=== PATIENT | female | born 1950 | race Caucasian/White ===

== ENCOUNTER 2020-11-10 09:47 | Inpatient (IN) | payer OTHER ==
--- OUTSIDE RECORDS SUMMARY | 2020-11-10 09:50 | XMS REPORT | Continuity of Care Document ---
:[address] [facility] t Address [address] [place] [address] [place] [id number] Care Team Providers Name Role Phone Domingo Attending Clinician [phone] Problems This patient has no known problems. Allergies, Adverse Reactions, Alerts This patient has no known allergies or adverse reactions. Medications This patient has no known medications. Procedures This patient has no known procedures. Encounters Start End Encounter Admission Attending Care Care Encounter Source Date/Time Date/Time Type Type Clinicians Facility Department ID 2020-11-08 2020-11-08 Outpatient [facility] [id number] 00:00:00 00:00:00 Marleni [id number] 2020-11-06 2020-11-06 Outpatient [facility] [id number] 00:00:00 00:00:00 Marleni [id number] 2020-11-02 2020-11-02 Out[facility] [id number] 00:00:00 00:00:00 Marleni [id number] Results This patient has no known results.
[2020-11-10] MEDS ORDERED: NA CHLORIDE 0.9% 1,000 ML ONE (11:33)
[2020-11-10] MEDS ORDERED: Levofloxacin500mg IV 500 MG/100 ML BAG IV ONE (11:33)
[2020-11-10] MEDS ORDERED: FOLIC ACID 5 MG/ML VIAL ONE (11:39)
--- NOTE | 2020-11-10 12:05 | RAD REPORT ---
EXAM DESCRIPTION: CT - Head Brain Wo Cont - 11/10/2020 11:51 am CLINICAL HISTORY: Dizziness COMPARISON: None TECHNIQUE: Computed axial tomography of the head was obtained. IV contrast was not requested. All CT scans are performed using dose optimization technique as appropriate and may include automated exposure control or mA/KV adjustment according to patient size. FINDINGS: An intracranial bleed is not seen . The ventricles are normal in caliber. No extra-axial fluid collection is noted. Fluid is present within the maxillary, ethmoid, frontal and sphenoid sinuses IMPRESSION: No acute intracranial abnormality is seen. Acute pansinusitis
--- NOTE | 2020-11-10 12:10 | RAD REPORT ---
EXAM DESCRIPTION: CT - Soft Tissue Neck W/Contr - 11/10/2020 11:51 am CLINICAL HISTORY: Neck pain and swelling COMPARISON: None. TECHNIQUE: Computed axial tomography of the neck was obtained. 50 cc Isovue 300 was administered in travenously. Coronal and sagittal reconstruction was performed. All CT scans are performed using dose optimization technique as appropriate and may include automated exposure control or mA/KV adjustment according to patient size. FINDINGS: Mild prominence of the left base of tongue. Remainder the pharynx, larynx and subglottic t rachea are unremarkable. Epiglottis is normal. The parotid, submandibular and thyroid glands appear unremarkable. No lymphadenopathy is seen IMPRESSION: Mild prominence of the left base of tongue. This has more of the appearance of being maximilian matous rather than an underlying mass being present. Followup is recommended.
[2020-11-10 12:13] LABS: Absolute Lymphocytes (CBC) 1.4 K/uL (0.7-4.9); Basophils % 0.1 % (0-1.3); Hematocrit 31.1 % (36.0-45.0); Lymphocytes % 7.6 % (15.3-44.8); MPV 6.5 fL (7.6-11.3); RBC Red Blood Cell Count 3.81 M/uL (3.86-4.86)
[2020-11-10 12:18] LABS: Protime INR 1.03
--- NOTE | 2020-11-10 12:28 | RAD REPORT ---
EXAM DESCRIPTION: MRI - Brain Wo Cont - 11/10/2020 12:07 pm CLINICAL HISTORY: Dizziness COMPARISON: Head CT November 10, 2020 TECHNIQUE: Axial, sagittal, and coronal magnetic images of the brain were obtained. Contrast was not requested FINDINGS: A few small areas increased signal are present within periventricular, deep and subcortica l white matter probably ischemic changes secondary to mild small vessel disease. Diffusion-weighted/ADC mapping does not reveal evidence of acute infarction. The ventricles are normal caliber. An extra-axial fluid collection is not present Fluid is present within the maxillary, ethmoid, sphenoid and frontal sinuses IMPRESSION: No acute intracranial abnormality seen. Acute pansinusitis
[2020-11-10 12:39] LABS: ALT/SGPT 45 U/L (12-78); AST/SGOT 34 U/L (15-37); Albumin 3.1 g/dL (3.4-5.0); Alkaline Phosphatase 146 U/L (45-117); BUN Blood Urea Nitrogen 10 mg/dL (7-18); Bicarbonate 30 mmol/L (21-32); Bilirubin Direct 0.3 mg/dL (0-0.2); Bilirubin Total 0.8 mg/dL (0.2-1.0); Glucose Level 117 mg/dL (74-106); Magnesium 2.1 mg/dL (1.8-2.4); NT PRO-BNP 121 pg/mL (<125); Potassium 2.7 mmol/L (3.5-5.1); Protein, Total 7.3 g/dL (6.4-8.2); Troponin (Emerg Dept Use Only) < 0.02 ng/mL (0.0-0.045)
--- NOTE | 2020-11-10 12:40 | RAD REPORT ---
EXAM DESCRIPTION: RAD - Chest Single View - 11/10/2020 12:33 pm CLINICAL HISTORY: COUGH Chest pain. COMPARISON: <Comparisons> FINDINGS: Portable technique limits examination quality. The lungs are grossly clear. The heart is normal in size. No displaced fractures. IMPRESSION: No acute intrathoracic process suspected.
[2020-11-10 12:53] LABS: Sodium Level 112 mmol/L (136-145)
--- NOTE | 2020-11-10 13:01 | ER ---
Nurse's Notes [facility] Name: Leilani Moe Age: 70 yrs Sex: Female : 1950 Arrival Date: 11/10/2020 Time: 09:53 Bed 20 Private MD: Diagnosis: Weakness;Repeated falls;Elevated white blood cell count;Acute sinusitis-Pansinusitis;Hypokalemia;Hypo-osmolality and hyponatremia Presentation: 11/10 09:57 Chief complaint: Patient states: sinus pressure x 1 week. Pt reports she was seen for ss allergies and given an antibiotic and pain medication for her symptoms, but she ended up being allergic to both of them. Pt reports she had unilateral swelling of her tongue that began Friday, but has gotten much better. Pt was tested for Flu and COVID 2 days ago and both were negative. Coronavirus screen: Client denies travel out of the [place] in the last 14 days. Client presents with at least one sign or symptom that may indicate coronavirus-19. Standard/surgical mask placed on the client. Ebola Screen: Patient denies exposure to infectious person. Patient denies travel to an Ebola-affected area in the 21 days before illness onset. Initial Sepsis Screen: Does the patient meet any 2 criteria? No. Patient's initial sepsis screen is negative. Does the patient have a suspected source of infection? No. Patient's initial sepsis screen is negative. Risk Assessment: Do you want to hurt yourself or someone else? Patient reports no desire to harm self or others. Onset of symptoms was November 01, 2020. 09:57 Method Of Arrival: Ambulatory 09:57 Acuity: ANTONIO 3 ss Historical: - Allergies: 10:04 Codeine; ss 10:04 Morphine; ss - Home Meds: 11:04 Metformin Oral [Active]; vg1 - PMHx: 10:04 Hypertension; ss 11:04 Diabetes - IDDM; vg1 - PSHx: 10:04 Cholecystectomy; bilateral knee replacement; back surgery; ss - Immunization history:: Adult Immunizations up to date. - Social history:: Smoking status: Patient denies any tobacco usage or history of. - Family history:: not pertinent. Screenin:04 Abuse screen: Denies threats or abuse. Nutritional screening: No deficits noted. vg1 Tuberculosis screening: No symptoms or risk factors identified. Fall Risk Fall in past 12 months (25 points). No secondary diagnosis (0 pts). IV access (20 points). Ambulatory Aid- None/Bed Rest/Nurse Assist (0 pts). Gait- Normal/Bed Rest/Wheelchair (0 pts) Mental Status- Oriented to own ability (0 pts). Total Mckinney Fall Scale indicates High Risk Score (45 or more points). Fall prevention measures have been instituted. Side Rails Up X 2 Placed Close to Nursing Station 1:1 Attendant Assigned Family Present and informed to notify staff if the need to leave the bedside. Assessment: 10:50 General: Appears in no apparent distress. comfortable, Behavior is calm, cooperative. vg1 Pain: Denies pain. Pain currently is 0 out of 10 on a pain scale. Neuro: Level of Consciousness is awake, alert, obeys commands, Oriented to person, place, time, situation. Neuro: Reports Sinus pressure. Cardiovascular: Patient's skin is warm and dry. Respiratory: Airway is patent Respiratory effort is even, unlabored. GI: No signs and/or symptoms were reported involving the gastrointestinal system. : No signs and/or symptoms were reported regarding the genitourinary system. EENT: Oral mucosa is moist. white substance noted on tounge.. Reports difficulty swallowing Left ear pressure. Derm: Skin is intact, Skin is pink, warm \T\ dry. Musculoskeletal: Circulation, motion, and sensation intact. 12:53 Reassessment: Patient appears in no apparent distress at this time. No changes from vg1 previously documented assessment. Patient and/or family updated on plan of care and expected duration. Pain level reassessed. Patient is alert, oriented x 3, equal unlabored respirations, skin warm/dry/pink. 13:45 Reassessment: Reassessment: Lovofloxacin moved to Right AC due to Potassium being vg1 administered to the Left AC. 13:46 Reassessment: Patient appears in no apparent distress at this time. Patient and/or vg1 family updated on plan of care and expected duration. Pain level reassessed. Patient is alert, oriented x 3, equal unlabored respirations, skin warm/dry/pink. 15:00 Reassessment: Patient appears in no apparent distress at this time. Patient and/or vg1 family updated on plan of care and expected duration. Pain level reassessed. Patient is alert, oriented x 3, equal unlabored respirations, skin warm/dry/pink. 17:54 Reassessment: attempted to call report. vg1 Vital Signs: 09:57 BP 136 / 86; Pulse 93; Resp 16; Temp 98.5; Pulse Ox 99% on R/A; Weight 81.65 kg; Height ss 5 ft. 3 in. (160.02 cm); Pain 0/10; 11:03 BP 147 / 80; Pulse 86; Resp 16; Pulse Ox 100% on R/A; vg1 12:40 BP 148 / 82; Pulse 79; Resp 14; Pulse Ox 100% on R/A; vg1 09:57 Body Mass Index 31.89 (81.65 kg, 160.02 cm) ss Davey Coma Score: 11:17 Eye Response: spontaneous(4). Verbal Response: oriented(5). Motor Response: obeys paulino commands(6). Total: 15. ED Course: 09:53 Patient arrived in ED. mr 10:03 Triage completed. ss 10:04 Arm band placed on right wrist. ss 10:43 Joanne Stratton, RN is Primary Nurse. vg1 10:44 Brian Bruner MD is Attending Physician. paulino 11:04 Patient has correct armband on for positive identification. Placed in gown. Bed in low vg1 position. Call light in reach. Side rails up X2. 11:34 Initial lab(s) drawn, by me, sent to lab. EKG done, by ED staff. Inserted saline lock: vg1 20 gauge in left antecubital area, using aseptic technique. Blood collected. 11:[address] via wheelchair. vg1 11:51 CT Head Brain wo Cont In Process Unspecified. EDMS 11:51 Soft Tissue Neck W/Contr CT In Process Unspecified. EDMS 12:07 Brain Wo Cont In Process Unspecified. EDMS 12:33 XRAY Chest (1 view) In Process Unspecified. EDMS 12:38 Patient moved back from [address]. vg1 12:58 Stuart Quevedo MD is Hospitalizing Provider. paulino 13:45 Inserted saline lock: 22 gauge in right antecubital area, using aseptic technique. vg1 18:12 No provider procedures requiring assistance completed. Patient admitted, IV remains in vg1 place. Administered Medications: Discontinued: NS 0.9% with KCl 20 mEq/L 1000 ml IV at 100 ml/hr continuous 11:42 Drug: foLIC Acid 1 mg Route: IVPB; Site: left antecubital; vg1 14:44 Follow up: IV Status: Completed infusion vg1 11:43 Drug: NS 0.9% 500 ml Route: IV; Rate: bolus; Site: left antecubital; vg1 12:30 Follow up: IV Status: Completed infusion; IV Intake: 500ml vg1 11:43 Drug: levofloxacin 500 mg Volume: 100 ml; Route: IVPB; Infused Over: 60 mins; Site: vg1 left antecubital; 14:44 Follow up: IV Status: Completed infusion vg1 12:40 CANCELLED (Duplicate Order): Doxycycline 100 mg PO once paulino 13:02 Not Given (Duplicate Order): NS 0.9% 1000 ml IV at 125 ml/hr continuous paulino 13:30 Drug: Doxycycline 200 mg Route: PO; vg1 14:44 Follow up: Response: No adverse reaction vg1 13:42 Drug: Potassium Effervescent Tablet 50 mEq Route: PO; vg1 14:44 Follow up: Response: No adverse reaction vg1 13:42 Drug: Potassium Chloride 20 mEq Route: IV; Rate: per protocol; Site: left antecubital; vg1 14:43 Follow up: IV Status: Completed infusion vg1 13:42 Drug: NS 0.9% with KCl 20 mEq/L 1000 ml Route: IV; Rate: 100 ml/hr; Site: left vg1 antecubital; 17:56 Follow up: Response: No adverse reaction vg1 14:43 Drug: Potassium Chloride 20 mEq Route: IV; Rate: per protocol; Site: left antecubital; vg1 15:39 Follow up: IV Status: Completed infusion vg1 Intake: 12:30 IV: 500ml; Total: 500ml. vg1 Outcome: 13:00 Decision to Hospitalize by Provider. paulino 15:38 Admitted to ER Hold. Please see [facility] for further documentation. vg1 18:12 Condition: stable vg1 18:13 Admitted to Med/surg accompanied by tech, via wheelchair, room 425, with chart, Report vg1 called to SANGEETA Haywood 18:22 Patient left the ED. ss Signatures: Dispatcher [employer] Brian Katz MD MD cha Rivera, Neetu Molina, RN RN ss Joanne Stratton RN RN vg1 Corrections: (The following items were deleted from the chart) 12:59 10:50 EENT: Reports difficulty swallowing Left ear pressure. vg1 vg1 13:46 13:45 Reassessment: 1 vg1
--- NOTE | 2020-11-10 13:01 | EDPHYS ---
Physician Documentation [facility] Name: Leilani Moe Age: 70 yrs Sex: Female : 1950 Arrival Date: 11/10/2020 Time: 09:53 Bed 20 Private MD: SHARYN Physician Brian Bruner HPI: 11/10 11:12 This 70 yrs old Female presents to ER via Ambulatory with complaints of paulino Cough, Swelling Of Tongue. 11:12 The patient or guardian reports cough. Onset: The symptoms/episode began/occurred 3 paulino day(s) ago. Severity of symptoms: At their worst the symptoms were mild, in the emergency department the symptoms are unchanged. 11:13 The patient presents with sore throat, dysphagia. The patient describes throat pain as paulino constant, dry. The patient presents with a fullness, pain. The complaints affect the left ear and left jaw. Modifying factors: The symptoms are alleviated by nothing, the symptoms are aggravated by nothing. The patient complains of pain to the forehead, left eye, left frontal area, left side of forehead and left temporal area. The patient describes the headache as a pressure. Onset: The symptoms/episode began/occurred 1 week(s) ago. Associated signs and symptoms: Pertinent positives: dizziness, weakness, falls x 2, Pertinent negatives:. Historical: - Allergies: 10:04 Codeine; ss 10:04 Morphine; ss - Home Meds: 11:04 Metformin Oral [Active]; vg1 - PMHx: 10:04 Hypertension; ss 11:04 Diabetes - IDDM; vg1 - PSHx: 10:04 Cholecystectomy; bilateral knee replacement; back surgery; ss - Immunization history:: Adult Immunizations up to date. - Social history:: Smoking status: Patient denies any tobacco usage or history of. - Family history:: not pertinent. ROS: 11:13 Constitutional: Negative for fever, chills, and weight loss, Eyes: Negative for injury, paulino pain, redness, and discharge, Neck: Negative for injury, pain, and swelling, Cardiovascular: Negative for chest pain, palpitations, and edema, Respiratory: Negative for shortness of breath, cough, wheezing, and pleuritic chest pain, Abdomen/GI: Negative for abdominal pain, nausea, vomiting, diarrhea, and constipation, Back: Negative for injury and pain, : Negative for injury, bleeding, discharge, and swelling, MS/Extremity: Negative for injury and deformity, Skin: Negative for injury, rash, and discoloration, Psych: Negative for depression, anxiety, suicide ideation, homicidal ideation, and hallucinations, Allergy/Immunology: Negative for hives, rash, and allergies, Endocrine: Negative for neck swelling, polydipsia, polyuria, polyphagia, and marked weight changes, Hematologic/Lymphatic: Negative for swollen nodes, abnormal bleeding, and unusual bruising. 11:13 ENT: Positive for ear pain, sore throat. 11:13 Neck: Positive for pain with movement, pain at rest. Exam: 11:13 Constitutional: This is a well developed, well nourished patient who is awake, alert, paulino and in no acute distress. Head/Face: Normocephalic, atraumatic. Eyes: Pupils equal round and reactive to light, extra-ocular motions intact. Lids and lashes normal. Conjunctiva and sclera are non-icteric and not injected. Cornea within normal limits. Periorbital areas with no swelling, redness, or edema. Neck: Trachea midline, no thyromegaly or masses palpated, and no cervical lymphadenopathy. Supple, full range of motion without nuchal rigidity, or vertebral point tenderness. No Meningismus. Chest/axilla: Normal chest wall appearance and motion. Nontender with no deformity. No lesions are appreciated. Cardiovascular: Regular rate and rhythm with a normal S1 and S2. No gallops, murmurs, or rubs. Normal PMI, no JVD. No pulse deficits. Respiratory: Lungs have equal breath sounds bilaterally, clear to auscultation and percussion. No rales, rhonchi or wheezes noted. No increased work of breathing, no retractions or nasal flaring. Abdomen/GI: Soft, non-tender, with normal bowel sounds. No distension or tympany. No guarding or rebound. No evidence of tenderness throughout. Back: No spinal tenderness. No costovertebral tenderness. Full range of motion. Female : Normal external genitalia. Skin: Warm, dry with normal turgor. Normal color with no rashes, no lesions, and no evidence of cellulitis. MS/ Extremity: Pulses equal, no cyanosis. Neurovascular intact. Full, normal range of motion. Psych: Awake, alert, with orientation to person, place and time. Behavior, mood, and affect are within normal limits. 11:13 ENT: TM's: decreased mobility, erythema, that is mild, on the left, Mouth: is normal, no acute changes, Posterior pharynx: is normal, no acute changes, Airway: normal, no evidence of obstruction, Tonsils: are normal in appearance. 11:13 Neck: External neck: C-spine: appears grossly normal, no acute changes, Thyroid: paulino appears normal, Trachea: no acute changes, ROM/movement: no acute changes, Lymph nodes: no appreciated lymphadenopathy. 12:51 ECG was reviewed by the Attending Physician. [facility] Vital Signs: 09:57 BP 136 / 86; Pulse 93; Resp 16; Temp 98.5; Pulse Ox 99% on R/A; Weight 81.65 kg; Height ss 5 ft. 3 in. (160.02 cm); Pain 0/10; 11:03 BP 147 / 80; Pulse 86; Resp 16; Pulse Ox 100% on R/A; vg1 12:40 BP 148 / 82; Pulse 79; Resp 14; Pulse Ox 100% on R/A; vg1 09:57 Body Mass Index 31.89 (81.65 kg, 160.02 cm) Maxie Coma Score: 11:17 Eye Response: spontaneous(4). Verbal Response: oriented(5). Motor Response: obeys [facility] commands(6). Total: 15. MDM: 10:44 Patient medically screened. [facility] 11:17 Differential diagnosis: otitis media, cerumen impaction, hyponatremia, neoplasm, paulino otitis, subdural hematoma, tension headache, vasomotor headache, gastroesophageal reflux disease, peritonsillar abscess pharyngitis, tonsillitis, upper respiratory infection. Differential Diagnosis: Obstructed Airway Sinusitis Pharyngitis Otitis Media Pneumonia. Data reviewed: vital signs, nurses notes, lab test result(s), EKG, radiologic studies, CT scan, MRI, plain films. Data interpreted: financial manager: rate is 86 beats/min, rhythm is regular, Pulse oximetry: on room air is 100 %. Test interpretation: by ED physician or midlevel provider: ECG, plain radiologic studies. Counseling: I had a detailed discussion with the patient and/or guardian regarding: the historical points, exam findings, and any diagnostic results supporting the discharge/admit diagnosis, lab results, radiology results. 11/10 11:11 Order name: Basic Metabolic Panel [facility] 11/10 11:11 Order name: CBC with Diff [facility] 11/10 11:11 Order name: LFT's; Complete Time: 12:54 [facility] 11/10 11:11 Order name: Magnesium; Complete Time: 12:54 [facility] 11/10 11:11 Order name: NT PRO-BNP; Complete Time: 12:54 [facility] 11/10 11:11 Order name: PT-INR; Complete Time: 12:36 [facility] 11/10 11:11 Order name: Troponin (emerg Dept Use Only); Complete Time: 12:54 [facility] 11/10 11:11 Order name: Basic Metabolic Panel; Complete Time: 12:54 [facility] 11/10 11:11 Order name: CBC with Automated Diff; Complete Time: 17:16 [facility] 11/10 12:05 Order name: CREATININE WHOLE BLOOD; Complete Time: 12:36 [facility] 11/10 12:28 Order name: CBC Smear Scan; Complete Time: 17:16 [facility] 11/10 12:57 Order name: Urine Culture [facility] 11/10 12:57 Order name: Urine Osmolality; Complete Time: 17:16 [facility] 11/10 12:57 Order name: Urine Sodium Random; Complete Time: 17:16 [facility] 11/10 12:57 Order name: Osmolality, Serum; Complete Time: 17:16 [facility] 11/10 13:01 Order name: Phosphorus; Complete Time: 17:16 [facility] 11/10 13:13 Order name: Comprehensive Metabolic Panel; Complete Time: 17:16 [facility] 11/10 13:13 Order name: CKMB Creatine Kinase MB [facility] 11/10 13:13 Order name: CKMB Creatine Kinase MB; Complete Time: 17:16 [facility] 11/10 13:13 Order name: CKMB Creatine Kinase MB [facility] 11/10 13:13 Order name: CKMB Creatine Kinase MB [facility] 11/10 13:13 Order name: Magnesium [facility] 11/10 13:13 Order name: CBC with Automated Diff; Complete Time: 17:16 [facility] 11/10 13:13 Order name: Thyroid Stimulating Hormone; Complete Time: 17:16 [facility] 11/10 13:13 Order name: Magnesium [facility] 11/10 13:13 Order name: Phosphorus [facility] 11/10 13:13 Order name: Phosphorus [facility] 11/10 13:13 Order name: PTT, Activated Partial Thromb [facility] 11/10 13:13 Order name: PTT, Activated Partial Thromb [facility] 11/10 13:13 Order name: Troponin I [facility] 11/10 11:11 Order name: XRAY Chest (1 view); Complete Time: 12:46 [facility] 11/10 11:11 Order name: EKG; Complete Time: 11:12 [facility] 11/10 11:11 Order name: Cardiac monitoring; Complete Time: 11:43 [facility] 11/10 11:11 Order name: CT Head Brain wo Cont; Complete Time: 12:36 [facility] 11/10 11:11 Order name: Soft Tissue Neck W/Contr CT; Complete Time: 12:36 [facility] 11/10 11:53 Order name: Brain Wo Cont; Complete Time: 12:36 [facility] 11/10 13:13 Order name: Physical Therapy Consult [facility] 11/10 13:13 Order name: Heart Healthy [facility] 11/10 13:13 Order name: Troponin I; Complete Time: 17:16 [facility] 11/10 13:13 Order name: Troponin I [facility] 11/10 13:13 Order name: Troponin I [facility] 11/10 13:15 Order name: Potassium [facility] 11/10 13:15 Order name: Potassium [facility] 11/10 13:49 Order name: Urine Dipstick-Ancillary; Complete Time: 17:16 [facility] 11/10 14:28 Order name: COVID-19 : Document "Date of Symptom Onset" if Symptomatic. 11/10 14:56 Order name: CBC Smear Scan; Complete Time: 17:16 [facility] 11/10 15:07 Order name: CORONAVIRUS [facility] 11/10 15:57 Order name: SARS-COV-2 RT PCR; Complete Time: 17:16 [facility] 11/10 16:22 Order name: Chem 7 [facility] 11/10 16:41 Order name: Glucose, Ancillary Testing; Complete Time: 17:16 [facility] 11/10 17:16 Order name: Basic Metabolic Panel; Complete Time: 17:16 [facility] 11/10 11:11 Order name: EKG - Nurse/Tech; Complete Time: 11:43 [facility] 11/10 11:11 Order name: IV Saline Lock; Complete Time: 11:43 [facility] 11/10 11:11 Order name: Labs collected and sent; Complete Time: 11:43 [facility] 11/10 11:11 Order name: O2 Per Protocol; Complete Time: 11:43 [facility] 11/10 11:11 Order name: O2 Sat Monitoring; Complete Time: 11:43 [facility] 11/10 12:57 Order name: Urine Dipstick-Ancillary (obtain specimen); Complete Time: 13:47 [facility] 11/10 12:57 Order name: Seizure Precautions; Complete Time: 13:02 [facility] 11/10 13:01 Order name: IV Saline Lock - Large Bore; Complete Time: 13:03 [facility] EC:51 Rate is 82 beats/min. Rhythm is regular. QRS [place] is Normal. MA interval is normal. QRS paulino interval is normal. QT interval is normal. No Q waves. T waves are Normal. No ST changes noted. Clinical impression: Normal ECG and No evidence of ischemia. Interpreted by me. Reviewed by me. Administered Medications: Discontinued: NS 0.9% with KCl 20 mEq/L 1000 ml IV at 100 ml/hr continuous 11:42 Drug: foLIC Acid 1 mg Route: IVPB; Site: left antecubital; vg1 14:44 Follow up: IV Status: Completed infusion vg1 11:43 Drug: NS 0.9% 500 ml Route: IV; Rate: bolus; Site: left antecubital; vg1 12:30 Follow up: IV Status: Completed infusion; IV Intake: 500ml vg1 11:43 Drug: levofloxacin 500 mg Volume: 100 ml; Route: IVPB; Infused Over: 60 mins; Site: 1 left antecubital; 14:44 Follow up: IV Status: Completed infusion vg1 12:40 CANCELLED (Duplicate Order): Doxycycline 100 mg PO once [facility] 13:02 Not Given (Duplicate Order): NS 0.9% 1000 ml IV at 125 ml/hr continuous paulino 13:30 Drug: Doxycycline 200 mg Route: PO; vg1 14:44 Follow up: Response: No adverse reaction vg1 13:42 Drug: Potassium Effervescent Tablet 50 mEq Route: PO; vg1 14:44 Follow up: Response: No adverse reaction vg1 13:42 Drug: Potassium Chloride 20 mEq Route: IV; Rate: per protocol; Site: left antecubital; vg1 14:43 Follow up: IV Status: Completed infusion vg1 13:42 Drug: NS 0.9% with KCl 20 mEq/L 1000 ml Route: IV; Rate: 100 ml/hr; Site: left vg1 antecubital; 17:56 Follow up: Response: No adverse reaction vg1 14:43 Drug: Potassium Chloride 20 mEq Route: IV; Rate: per protocol; Site: left antecubital; vg1 15:39 Follow up: IV Status: Completed infusion vg1 Disposition: 11/10/20 13:00 Hospitalization ordered by Stuart Quevedo for Inpatient Admission. Preliminary diagnosis are Weakness, Repeated falls, Elevated white blood cell count, Acute sinusitis - Pansinusitis, Hypokalemia, Hypo-osmolality and hyponatremia. - Bed requested for Telemetry/MedSurg (Inpatient). - Status is Inpatient Admission. ss - Condition is Fair. - Problem is new. - Symptoms are unchanged. Signatures: Dispatcher [employer] EDBrian Baires MD MD cha Smirch, Shelby, RN RN Elizabeth Scherer Victoria, RN RN vg1 Corrections: (The following items were deleted from the chart) 11:16 11:13 Neck: Exam negative for paulino paulino 11:53 11:12 MR STROKE PROTOCOL+MRI.RAD.BRZ ordered. [facility] 12:40 12:40 Doxycycline 100 mg PO once ordered. paulino paulino 17:17 13:00 Hospitalization Ordered by Stuart Quevedo MD for Inpatient Admission. Preliminary eb diagnosis is Weakness; Repeated falls; Elevated white blood cell count; Acute sinusitis - Pansinusitis; Hypokalemia; Hypo-osmolality and hyponatremia. Bed requested for Intensive Care Unit. Status is Inpatient Admission. Condition is Fair. Problem is new. Symptoms are unchanged. paulino 18:22 17:17 11/10/2020 13:00 Hospitalization Ordered by Stuart Quevedo MD for Inpatient ss Admission. Preliminary diagnosis is Weakness; Repeated falls; Elevated white blood cell count; Acute sinusitis - Pansinusitis; Hypokalemia; Hypo-osmolality and hyponatremia. Bed requested for Telemetry/MedSurg (Inpatient). Status is Inpatient Admission. Condition is Fair. Problem is new. Symptoms are unchanged. eb
[2020-11-10] MEDS ORDERED: ONDANSETRON 4 MG/2 ML VIAL IV PRN (13:07)
[2020-11-10] MEDS ORDERED: POTASSIUM 25 MEQ EFFERV TAB PO ONE (13:12)
[2020-11-10] MEDS ORDERED: DOXYCYCLINE 100 MG CAP PO ONE (13:15)
--- NOTE | 2020-11-10 13:19 | P.HP ---
Certification for Inpatient Patient admitted to: Inpatient With expected LOS: >2 Midnights Practitioner: I am a practitioner with admitting privileges, knowledge of patient current condition, hospital course, and medical plan of care. Services: Services provided to patient in accordance with Admission requirements found in Title 42 Section 412.3 of the Code of Federal Regulations Patient History Date of Service: 11/10/20 Reason for admission: Generalized weakness, cough, difficulty in ambulation History of Present Illness: 70 yrs old Female with past medical history hypertension and diabetes presents with complaints of generalized weakness and fatigue and difficulty in ambulation associated with cough and runny nose for the last 3 days and has been progressively worsening hence was brought to ER. Had fever to start with 3-4 days back of breath fever resolved . Started having sore throat and generalized weakness and complaints of sinus pressure and pain to the forehead and left eyes which was pressure-like feeling. Denies any chills. Denies any nausea vomiting. Associated with dizziness and weakness and had difficulty in ambulation. She had 2 falls. Denies any injury to head. The patient was assessed in the ER and vitals were stable. Her labs were consistent with hypokalemia and hyponatremia and had leukocytosis and CT was sug gestive of pansinusitis. MRI was negative for any acute neurologic changes. the patient was admitted for for closer monitoring and correction of electrolytes along with treatment for sinusitis Allergies codeine Allergy (Verified 11/10/20 15:47) Itching/Hives/Rash Home medications list reviewed: Yes - Past Medical/Surgical History Diabetic: Yes -: Diabetes, hypertension -: Cholecystectomy - Family History Family History: Reviewed- Non-Contributory - Social History Smoking Status: Never smoker Review of Systems 10-point ROS is otherwise unremarkable (All the 14 point review of systems are negative except for those mentioned HPI. Pertinent positives include generalized weakness and sinus pressure and headache) General: Weakness, Malaise ENT: Nose Congestion, Throat Pain, Other (Headache and pressure on the sinus points) Physical Examination - Vital Signs Temperature: 97.8 F Blood Pressure: 142/88 Pulse: 78 Respirations: 18 - Physical Exam General: Alert, In no apparent distress, Oriented x3 HEENT: Atraumatic, Normocephalic Neck: Supple, JVD not distended Respiratory: Clear to auscultation bilaterally, Normal air movement Cardiovascular: Regular rate/rhythm, Normal S1 S2 Capillary refill: <2 Seconds Gastrointestinal: Soft and benign, W/out hepatosplenomegaly, No tenderness Musculoskeletal: No clubbing, No swelling Integumentary: No rashes, No breakdown Neurological: Normal speech, Normal strength at 5/5 x4 extr, Normal affect Lymphatics: No axilla or inguinal lymphadenopathy Urinary: Other (No bladder distention) - Studies Laboratory Data (last 24 hrs) 11/10/20 11:34: PT 11.8, INR 1.03 11/10/20 11:34: WBC 18.50 H, Hgb 11.1 L, Hct 31.1 L, Plt Count 287 11/10/20 11:34: Sodium 112 L*, Potassium 2.7 L*, BUN 10, Creatinine 0.55, Glucose 117 H, Magnesium 2.1, Total Bilirubin 0.8, AST 34, ALT 45, Alkaline Phosphatase 146 H Assessment and Plan - Problems (Diagnosis) (1) Hyponatremia Current Visit: Yes Status: Acute Plan: Monitor closely under library monitor neuro vital signs start on normal saline at 100 mL/hour Will monitor sodium levels serially Will consider nephrology consult if not better Will hold diuretics (hydrochlorothiazide ) (2) Hypokalemia Current Visit: Yes Status: Acute Plan: Monitor under telemetry Replace potassium Monitor potassium in a.m Potassium supplementation Replacement protocol started. (3) Pansinusitis Current Visit: Yes Status: Acute Plan: Start on antibiotics Will get cultures Change antibiotic as per the sensitivity Pain control Qualifiers: Chronicity: acute (4) Leucocytosis Current Visit: Yes Status: Acute Plan: Possibly due to sinusitis on antibiotics monitor CBC in a.m. (5) Inability to walk Current Visit: Yes Status: Acute Plan: Possibly due to electrolyte imbalance hypernatremia correct Will get a PTOT evaluation CT and MRI findings noted (6) Generalized weakness Current Visit: Yes Status: Acute (7) Diabetes Current Visit: Yes Status: Chronic Plan: Insulin sliding scale will continue home medications Accu-Chek q AC and HS will get an A1c Will also get a lipid panel Qualifiers: Diabetes mellitus type: type 2 (8) Hypertension Current Visit: Yes Status: Chronic Plan: Antihypertensives titrated will hold her hydrochlorothiazide for now Titrate antihypertensives Monitor closely under telemetry Discharge Plan: Home - Advance Directives Does patient have a Living Will: No Does patient have a Durable POA for Healthcare: No - Code Status/Comfort Care Code Status: Full Code Time Spent Managing Pts Care (In Minutes): 45
[2020-11-10] MEDS ORDERED: POTASSIUM 25 MEQ EFFERV TAB ONE (13:27)
[2020-11-10] MEDS ORDERED: NS KCL 20MEQ 1,000 ML IV ONE (13:27)
[2020-11-10] MEDS ORDERED: KCL 20 MEQ/100 mL IVPB 40 MEQ/200 ML BAG IV ONE (13:30)
[2020-11-10 13:32] LABS: Platelet Estimate ADEQ; White Blood Cell Scan OK (OK)
[2020-11-10 13:33] LABS: Blood Morphology Comment NOT SEEN (NOT SEEN)
[2020-11-10] MEDS: NS KCL 20MEQ 20 MEQ/1,000 ML BAG IV SCH ×2 (13:45→18:47)
[2020-11-10 13:49] LABS: Urine Blood Negative (Negative); Urine Glucose Negative (Negative); Urine Protein Negative (Negative)
[2020-11-10] MEDS ORDERED: TRAMADOL HCL 50 MG TAB PO PRN (13:55)
[2020-11-10] MEDS ORDERED: GLUCAGON 1 MG/VIAL IM PRN (13:57)
[2020-11-10] MEDS ORDERED: NA CHLORIDE 0.9% 1,000 ML IV SCH (14:00)
[2020-11-10] MEDS: KCL 10 MEQ/100 ML IVPB 10 MEQ/100 ML BAG IV SCH ×2 (14:00→15:00)
[2020-11-10 14:20] LABS: Absolute Lymphocytes (CBC) 1.5 K/uL (0.7-4.9); Basophils % 0.2 % (0-1.3); Hematocrit 29.4 % (36.0-45.0); Lymphocytes % 9.1 % (15.3-44.8); MPV 6.4 fL (7.6-11.3); RBC Red Blood Cell Count 3.63 M/uL (3.86-4.86)
[2020-11-10] MEDS ORDERED: D50W 25 GM/50 ML VIAL IV PRN (14:38)
[2020-11-10 14:39] LABS: CKMB Creatine Kinase MB 9.9 ng/mL (0.3-3.6); Troponin I < 0.02 ng/mL (0.0-0.045)
[2020-11-10 14:45] LABS: ALT/SGPT 41 U/L (12-78); AST/SGOT 28 U/L (15-37); Albumin 2.7 g/dL (3.4-5.0); Alkaline Phosphatase 136 U/L (45-117); BUN Blood Urea Nitrogen 8 mg/dL (7-18); Bicarbonate 30 mmol/L (21-32); Bilirubin Total 0.7 mg/dL (0.2-1.0); Glucose Level 131 mg/dL (74-106); Potassium 3.1 mmol/L (3.5-5.1); Protein, Total 6.7 g/dL (6.4-8.2); Thyroid Stimulating Hormone 0.427 uIU/mL (0.360-3.740)
[2020-11-10 14:47] LABS: Sodium Level 112 mmol/L (136-145)
[2020-11-10 14:55] LABS: Blood Morphology Comment NOT SEEN (NOT SEEN); Platelet Estimate ADEQ; Toxic Granulation 1+; White Blood Cell Scan OK (OK)
[2020-11-10] MEDS: ENOXAPARIN 40 MG/0.4 ML SQ SCH (16:00)
[2020-11-10] MEDS: CEFTRIAXONE/SWI 1gm 1 GM/10 ML SYR IVP SCH (16:05)
[2020-11-10] MEDS ORDERED: ENOXAPARIN 40 MG/0.4 ML SQ ONE (16:14)
[2020-11-10] MEDS ORDERED: CEFTRIAXONE/SWI 1gm 1 GM/10 ML SYR ONE (16:14)
[2020-11-10] MEDS: INSULIN -REGULAR HUMAN 50 UNIT/0.5 ML ML SQ SCH ×2 (16:30→21:00)
[2020-11-10] MEDS: AZITHROMYCIN IV 500 MG in NA CHLORIDE 0.9% 250 ML IVPB SCH (16:40)
[2020-11-10 16:46] VITALS: BMI 31.8
[2020-11-10 17:15] LABS: BUN Blood Urea Nitrogen 7 mg/dL (7-18); Bicarbonate 32 mmol/L (21-32); Glucose Level 110 mg/dL (74-106); Potassium 3.8 mmol/L (3.5-5.1); Sodium Level 115 mmol/L (136-145)
[2020-11-10] MEDS: HYDRALAZINE HCL 20 MG/ML VIAL IV PRN (18:42)
[2020-11-10] MEDS: POTASSIUM CL SA 10 MEQ TAB PO SCH (21:00)
[2020-11-10 22:06] LABS: CKMB Creatine Kinase MB 9.7 ng/mL (0.3-3.6); Troponin I < 0.02 ng/mL (0.0-0.045)
[2020-11-11] MEDS: ACETAMINOPHEN 500 MG TAB PO PRN ×4 (00:43→23:59)
[2020-11-11] MEDS: NS KCL 20MEQ 20 MEQ/1,000 ML BAG IV SCH ×4 (03:55→23:58)
[2020-11-11] MEDS: INSULIN -REGULAR HUMAN 50 UNIT/0.5 ML ML SQ SCH ×4 (07:30→21:00)
[2020-11-11 07:55] LABS: CKMB Creatine Kinase MB 3.9 ng/mL (0.3-3.6); HDL Cholesterol 41 mg/dL (40-60); LDL Cholesterol, Calculated 41 (<130); Magnesium 1.8 mg/dL (1.8-2.4); Phosphorus 2.1 mg/dL (2.5-4.9); Potassium 3.8 mmol/L (3.5-5.1); Troponin I < 0.02 ng/mL (0.0-0.045)
--- NOTE | 2020-11-11 07:58 | EKG ---
Test Date: 2020-11-10 Test Time: 11:24:54 Forestry Worker: STALIN MEASUREMENT RESULTS: Intervals: Rate: 82 HI: 184 QRSD: 96 QT: 400 QTc: 467 [place]: P: 57 HI: 184 QRS: 64 T: 39 INTERPRETIVE STATEMENTS: Normal sinus rhythm Normal ECG Compared to ECG 08/06/2005 05:26:00 No significant changes Electronically Signed On 11-11-20 07:56:47 CDT by Gopal Dawkins
[2020-11-11] MEDS: CEFTRIAXONE/SWI 1gm 1 GM/10 ML SYR IVP SCH (07:59)
[2020-11-11] MEDS: POTASSIUM CL SA 10 MEQ TAB PO SCH ×2 (07:59→21:52)
[2020-11-11] MEDS: ENOXAPARIN 40 MG/0.4 ML SQ SCH (07:59)
[2020-11-11] MEDS: AZITHROMYCIN IV 500 MG in NA CHLORIDE 0.9% 250 ML IVPB SCH (10:29)
--- NOTE | 2020-11-11 12:31 | P.PN ---
Subjective Date of Service: 11/11/20 Chief Complaint: Generalized weakness, cough, difficulty in ambulation Patient has no complain. She denies any vomiting or diarrhea. Sodium level is still low at 115 Physical Examination - Vital Signs Temperature: 98.8 F Blood Pressure: 137/80 Pulse: 89 Respirations: 18 Pulse Ox (%): 97 - Physical Exam General: In no apparent distress, Oriented x3 HEENT: Mucous membr. moist/pink Neck: JVD not distended Respiratory: Clear to auscultation bilaterally, Normal air movement Cardiovascular: No edema, Regular rate/rhythm, Normal S1 S2 Gastrointestinal: Normal bowel sounds, Soft and benign, Non-distended, No tenderness Musculoskeletal: No swelling, No tenderness Integumentary: No rashes, No erythema Neurological: Normal speech, Normal strength at 5/5 x4 extr, Cranial nerves 3-12 intact - Studies Laboratory Data (last 24 hrs) 11/10/20 11:34: Phosphorus 2.6 11/10/20 11:34: PT 11.8, INR 1.03 11/10/20 11:34: WBC 18.50 H, Hgb 11.1 L, Hct 31.1 L, Plt Count 287 11/10/20 11:34: Sodium 112 L*, Potassium 2.7 L*, BUN 10, Creatinine 0.55, Glucose 117 H, Magnesium 2.1, Total Bilirubin 0.8, AST 34, ALT 45, Alkaline Phosphatase 146 H Assessment And Plan - Current Problems (Diagnosis) (1) Generalized weakness Current Visit: Yes Status: Acute (2) Hypokalemia Current Visit: Yes Status: Acute (3) Hyponatremia Current Visit: Yes Status: Acute (4) Pansinusitis Current Visit: Yes Status: Acute Qualifiers: Chronicity: acute (5) Diabetes Current Visit: Yes Status: Chronic Qualifiers: Diabetes mellitus type: type 2 (6) Hypertension Current Visit: Yes Status: Chronic - Plan Sodium level is still low and has not responded much to normal saline. Serum osmolality is low suggesting dilutional hyponatremia. SIADH is possible. Continue IV normal saline. Free water restriction to 1200ml/day. Potassium replaced. Monitor BMP every 6 hours and replete potassium as needed. Nephrology consult. Hold hydrochlorothiazide and losartan. Manage blood pressure with Amlodipine. Continue Zithromax for pansinusitis. Leukocytosis probably secondary to pansinusitis. Monitor CBC.
[2020-11-11 13:30] LABS: BUN Blood Urea Nitrogen 6 mg/dL (7-18); Bicarbonate 24 mmol/L (21-32); Glucose Level 109 mg/dL (74-106); Potassium 4.1 mmol/L (3.5-5.1); Sodium Level 112 mmol/L (136-145)
[2020-11-11 18:52] LABS: BUN Blood Urea Nitrogen 5 mg/dL (7-18); Bicarbonate 25 mmol/L (21-32); Glucose Level 154 mg/dL (74-106); Potassium 3.8 mmol/L (3.5-5.1)
[2020-11-11 18:53] LABS: Sodium Level 113 mmol/L (136-145)
[2020-11-11] MEDS: HYDRALAZINE HCL 20 MG/ML VIAL IV PRN (23:52)
[2020-11-12 01:02] LABS: BUN Blood Urea Nitrogen 4 mg/dL (7-18); Bicarbonate 26 mmol/L (21-32); Glucose Level 112 mg/dL (74-106); Potassium 4.3 mmol/L (3.5-5.1); Sodium Level 118 mmol/L (136-145)
[2020-11-12 04:22] LABS: BUN Blood Urea Nitrogen 4 mg/dL (7-18); Bicarbonate 26 mmol/L (21-32); Glucose Level 109 mg/dL (74-106); Potassium 4.3 mmol/L (3.5-5.1)
[2020-11-12 04:23] LABS: Sodium Level 119 mmol/L (136-145)
[2020-11-12 04:35] LABS: Absolute Lymphocytes (CBC) 1.1 K/uL (0.7-4.9); Basophils % 0.1 % (0-1.3); Hematocrit 27.7 % (36.0-45.0); Lymphocytes % 5.9 % (15.3-44.8); MPV 6.3 fL (7.6-11.3); RBC Red Blood Cell Count 3.36 M/uL (3.86-4.86)
[2020-11-12] MEDS: ACETAMINOPHEN 500 MG TAB PO PRN ×2 (06:17→20:00)
[2020-11-12] MEDS: INSULIN -REGULAR HUMAN 50 UNIT/0.5 ML ML SQ SCH ×4 (07:30→21:00)
[2020-11-12] MEDS: NS KCL 20MEQ 20 MEQ/1,000 ML BAG IV SCH ×4 (08:00→23:08)
[2020-11-12] MEDS: CEFTRIAXONE/SWI 1gm 1 GM/10 ML SYR IVP SCH (08:35)
[2020-11-12] MEDS: ENOXAPARIN 40 MG/0.4 ML SQ SCH (08:35)
[2020-11-12] MEDS: POTASSIUM CL SA 10 MEQ TAB PO SCH ×2 (08:36→21:00)
[2020-11-12] MEDS: MAGNESIUM OXIDE 400 MG TAB PO SCH (08:36)
[2020-11-12] MEDS: METOPROLOL XL 50 MG TAB PO SCH (08:36)
[2020-11-12] MEDS: VITAMIN D 1000 UNIT TAB PO SCH (08:36)
[2020-11-12] MEDS: ASPIRIN EC 81 MG TAB PO SCH (08:36)
[2020-11-12] MEDS: HOME MED 1 EA UNK (Fish Oil/Dha/Epa [Fish Oil 1,200 Mg Fish Oil] Capsule) PO SCH (08:37)
[2020-11-12] MEDS: AZITHROMYCIN IV 500 MG in NA CHLORIDE 0.9% 250 ML IVPB SCH (09:36)
[2020-11-12 13:34] LABS: BUN Blood Urea Nitrogen 4 mg/dL (7-18); Bicarbonate 26 mmol/L (21-32); Glucose Level 130 mg/dL (74-106); Potassium 4.3 mmol/L (3.5-5.1); Sodium Level 122 mmol/L (136-145)
--- NOTE | 2020-11-12 15:27 | P.PN ---
Subjective Date of Service: 11/12/20 Chief Complaint: Generalized weakness, cough, difficulty in ambulation Patient reports fatigue, poor appetite. She denies any fever, nausea or vomiting. Sodium level has improved to 122. Physical Examination - Vital Signs Temperature: 98.8 F Blood Pressure: 151/79 Pulse: 89 Respirations: 18 Pulse Ox (%): 97 - Physical Exam General: Alert, In no apparent distress, Oriented x3 HEENT: Mucous membr. moist/pink Neck: JVD not distended Respiratory: Clear to auscultation bilaterally, Normal air movement Cardiovascular: No edema, Regular rate/rhythm, Normal S1 S2 Gastrointestinal: Normal bowel sounds, Soft and benign, Non-distended, No tenderness Musculoskeletal: No swelling, No tenderness Integumentary: No rashes, No erythema Neurological: Normal speech, Normal strength at 5/5 x4 extr, Cranial nerves 3-12 intact Assessment And Plan - Current Problems (Diagnosis) (1) Generalized weakness Current Visit: Yes Status: Acute (2) Hypokalemia Current Visit: Yes Status: Acute (3) Hyponatremia Current Visit: Yes Status: Acute (4) Pansinusitis Current Visit: Yes Status: Acute Qualifiers: Chronicity: acute (5) Diabetes Current Visit: Yes Status: Chronic Qualifiers: Diabetes mellitus type: type 2 (6) Hypertension Current Visit: Yes Status: Chronic - Plan Sodium level is still low and has not responded much to normal saline. Serum osmolality and chloride are low suggesting dilutional hyponatremia. SIADH is possible. Continue IV normal saline. Free water restriction to 1200ml/day. Monitor BMP and replete other electrolytes as needed. Consulting nephrology. Hydrochlorothiazide and losartan are on hold. Manage blood pressure with Amlodipine. Leukocytosis persist. Continue Zithromax and Rocephin. Obtain blood culture. Monitor CBC.
[2020-11-12 20:36] LABS: BUN Blood Urea Nitrogen 5 mg/dL (7-18); Bicarbonate 26 mmol/L (21-32); Glucose Level 105 mg/dL (74-106); Potassium 4.8 mmol/L (3.5-5.1); Sodium Level 123 mmol/L (136-145)
--- NOTE | 2020-11-12 21:32 | ER ---
Date of Visit: 11/12/2020 Reason For Consultation: Hyponatremia. History Of Present Illness: Ms. Moe is a 70-year-old female who was admitted to the hospital on A pril 23, which is 2 days prior to the consultation who had presented with generalized weakness and di fficulty in ambulation. According to Ms. Moe, she had started having symptoms of severe sinusitis on Friday and . She had started on antibiotics and was given some opiate pain medication s. She had medications and then had about 2 days of nausea and vomiting at which time she stopped the opioid. She said that her symptoms were not improving, and then on Friday, she went nik k to her primary care provider and also complained of tongue swelling at that time. She was given an tihistamines and had been following up daily. Then the point came where she was so weak that she cam e to the emergency room. She was found to have a sodium level of 113, BUN of 5, creatinine 0.44, glu cose 154, and calcium 7.8. She was managed with D5 normal saline 100 mL an hour since that time and did not have significant improvement in her sodium level and thus consultation was requested. The pa philip did only have a 9 mEq rise of sodium in the past approximately 48 hours. Her potassium level h owever did improve. In terms of hyponatremia history, she stated that her water intake had been pretty stable. It was ap proximately a liter per day. However, she was having pain and nausea related to her illness. She al so stated that she was taking heavy amount of NSAIDs. She was taking 2 to [address] Advil 3 times a day for pain. The patient also was on a thiazide diuretic. In terms of her diet , her protein intake was very poor. She was unable to eat with her acute illness. She denied any hi story of smoking or any weight loss. She has always weighed 180 pounds. Past Medical History: Reviewed. Physical Examination: Vital Signs: Blood pressure is 151/79, pulse 89, temperature 98.8, blood pressures have been in the 130s to 140s on admission, but slowly been rising. Heart rate 89, temperature 98.8. Input and outpu t: The patient has received approximately 5 L of IV fluids since admission. She has also received so me electrolyte replenishment. Laboratory Data: Sodium 122, potassium 4.3, chloride 89, BUN 4, creatinine 0.4, and glucose 130. CB C shows WBC of 19, hemoglobin 10, hematocrit 27.7, platelet count of 215. UA was bland and on the did show a dilute urine. In terms of patient's osmolality, urine osmolality was 362, and initial serum osmolalities were 226 a nd 235. Impression: 1.Severe hyponatremia. 2.Altered mental status. 3.Debility and weakness. 4.Sinusitis. Plan: Ms. Moe's hyponatremia is multifactorial. The patient was on heavy dose of NSAIDs as well as thiazide and had poor p.o. intake with only water being her maintenance liquid. Combination would lead to an impaired free water excretion, which would lead to her hyponatremia. I believe that the reason that she did not have the expected response in terms of free water excretion was secondary to the accumulation of the medications and the time for this to metabolize. She is now showing improvem ent of her sodium level with fluid restriction and normal saline. I will check another urine osmolal ity to assess whether her urine is more dilute than her serum, which was determined by those osmolali ty levels. In the meantime, I would encourage diet and encourage protein intake. I will continue the fluid rest riction and IV fluids. Once her sinusitis and all the acute symptoms have resolved, we will continue with the thiazide diure tic, but only being in the setting where she is eating and feels at her baseline. Otherwise, ___ repeat episode of hyponatremia. Serum and urine assays have been ordered for tomorrow and we will continue to follow. Thank you for the consultation. /ELIN Voice ID: [id number] Report ID: [id number]
[2020-11-13 03:44] LABS: BUN Blood Urea Nitrogen 4 mg/dL (7-18); Bicarbonate 24 mmol/L (21-32); Glucose Level 104 mg/dL (74-106); Potassium 4.5 mmol/L (3.5-5.1); Sodium Level 126 mmol/L (136-145); Uric Acid 2.1 mg/dL (2.6-6.0)
[2020-11-13] MEDS: INSULIN -REGULAR HUMAN 50 UNIT/0.5 ML ML SQ SCH ×4 (07:30→21:00)
[2020-11-13] MEDS: METOPROLOL XL 50 MG TAB PO SCH (08:14)
[2020-11-13] MEDS: CEFTRIAXONE/SWI 1gm 1 GM/10 ML SYR IVP SCH (08:14)
[2020-11-13] MEDS: ASPIRIN EC 81 MG TAB PO SCH (08:14)
[2020-11-13] MEDS: POTASSIUM CL SA 10 MEQ TAB PO SCH ×2 (08:15→21:00)
[2020-11-13] MEDS: ENOXAPARIN 40 MG/0.4 ML SQ SCH (08:15)
[2020-11-13] MEDS: HOME MED 1 EA UNK (Fish Oil/Dha/Epa [Fish Oil 1,200 Mg Fish Oil] Capsule) PO SCH (08:15)
[2020-11-13] MEDS: MAGNESIUM OXIDE 400 MG TAB PO SCH (08:15)
[2020-11-13] MEDS: VITAMIN D 1000 UNIT TAB PO SCH (08:15)
[2020-11-13] MEDS: AMLODIPINE 5 MG TAB PO SCH (08:16)
[2020-11-13] MEDS: AZITHROMYCIN IV 500 MG in NA CHLORIDE 0.9% 250 ML IVPB SCH (09:09)
[2020-11-13] MEDS: NS KCL 20MEQ 20 MEQ/1,000 ML BAG IV SCH (12:38)
--- NOTE | 2020-11-13 16:51 | P.PN ---
Subjective Date of Service: 11/13/20 Chief Complaint: Generalized weakness, cough, difficulty in ambulation Patient reports feeling much better today with less fatigue. She denies any fever, nausea or vomiting. Sodium level has improved to 126. Urine culture growing the chloe. Physical Examination - Vital Signs Temperature: 98.1 F Blood Pressure: 150/82 Pulse: 87 Respirations: 16 Pulse Ox (%): 97 - Physical Exam General: Alert, In no apparent distress, Oriented x3 HEENT: Mucous membr. moist/pink, Sclerae nonicteric Neck: Supple, JVD not distended Respiratory: Clear to auscultation bilaterally, Normal air movement Cardiovascular: No edema, Regular rate/rhythm, Normal S1 S2 Gastrointestinal: Normal bowel sounds, Soft and benign, Non-distended, No tenderness Musculoskeletal: No swelling, No tenderness Integumentary: No rashes, No erythema Neurological: Normal speech, Normal strength at 5/5 x4 extr, Cranial nerves 3-12 intact Assessment And Plan - Current Problems (Diagnosis) (1) Generalized weakness Current Visit: Yes Status: Acute (2) Hypokalemia Current Visit: Yes Status: Acute (3) Hyponatremia Current Visit: Yes Status: Acute (4) Pansinusitis Current Visit: Yes Status: Acute Qualifiers: Chronicity: acute (5) Diabetes Current Visit: Yes Status: Chronic Qualifiers: Diabetes mellitus type: type 2 (6) Hypertension Current Visit: Yes Status: Chronic (7) UTI (urinary tract infection) Current Visit: Yes Status: Acute - Plan Sodium level has significantly improved. Serum osmolality and chloride are low suggesting dilutional hyponatremia. SIADH is possible. Continue IV normal saline. Free water restriction to 1200ml/day. Monitor BMP and replete other electrolytes as needed. Nephrology input appreciated. Hydrochlorothiazide and losartan are on hold. Amlodipine for hypertension. Worsening leukocytosis. Continue IV Rocephin and oral Zithromax. Blood culture: Pending. Monitor CBC and BMP.
--- NOTE | 2020-11-13 21:47 | P.PN ---
Date of Service: 11/13/20 Vital Signs Temp Pulse Resp BP Pulse Ox 98.3 F 95 H 19 161/88 H 98 11/13/20 20:00 11/13/20 20:00 11/13/20 20:00 11/13/20 20:00 11/13/20 20:00 Medications Acetaminophen (Acetaminophen 500 Mg Tab) 500 mg PO Q4HP PRN PRN Reason: TEMP > 100' F Last Admin: 11/12/20 20:00 Dose: 500 mg Documented by: Amlodipine Besylate (Amlodipine 5 Mg Tab) 5 mg PO DAILY [facility] Last Admin: 11/13/20 08:16 Dose: 5 mg Documented by: Aspirin (Aspirin Ec 81 Mg Tab) 81 mg PO DAILY [facility] Last Admin: 11/13/20 08:14 Dose: 81 mg Documented by: Azithromycin (Azithromycin 250 Mg Tab) 500 mg PO DAILY [facility] Cholecalciferol (Vitamin D 1000 Unit Tab) 1,000 unit PO DAILY [facility] Last Admin: 11/13/20 08:15 Dose: 1,000 unit Documented by: Dextrose (D50w 25 Gm/50 Ml Vial) 12.5 gm IV PRN PRN PRN Reason: HYPOGLYCEMIA Enoxaparin Sodium (Enoxaparin 40 Mg/0.4 Ml) 40 mg SQ DAILY [facility] Last Admin: 11/13/20 08:15 Dose: 40 mg Documented by: Glucagon (Glucagon 1 Mg/Vial) 1 mg IM 1X PRN PRN Reason: HYPOGLYCEMIA Home Med (Fish Oil/Dha/Epa [Fish Oil 1,200 Mg Fish Oil]) 1 tab PO DAILY [facility] Last Admin: 11/13/20 08:15 Dose: Not Given Documented by: Hydralazine HCl (Hydralazine Hcl 20 Mg/Ml Vial) 10 mg IV Q4HP PRN PRN Reason: FOR SBP>160 OR DBP>100 [facility] Last Admin: 11/11/20 23:52 Dose: 10 mg Documented by: Ceftriaxone Sodium/Sodium Chloride (Rocephin 1 Gm/10 Ml Swi Ivp) 1 gm in 10 mls @ 600 mls/hr IVP DAILY [facility]; Protocol Last Admin: 11/13/20 08:14 Dose: 10 mls Documented by: Potassium Chloride/Sodium Chloride (Kcl 20meq/Ns 1000 Ml Iv) 20 meq in 1,000 mls @ 100 mls/hr IV .Q10H [facility] Last Admin: 11/13/20 12:38 Dose: 1,000 mls Documented by: Insulin Human Regular (Insulin -Regular Human 50 Unit/0.5 Ml Ml) 0 unit SQ ACHS [facility]; Protocol Last Admin: 11/13/20 16:20 Dose: Not Given Documented by: Magnesium Oxide (Magnesium Oxide 400 Mg Tab) 200 mg PO DAILY [facility] Last Admin: 11/13/20 08:15 Dose: 200 mg Documented by: Metoprolol Succinate (Metoprolol Xl 50 Mg Tab) 50 mg PO DAILY [facility] Last Admin: 11/13/20 08:14 Dose: 50 mg Documented by: Ondansetron HCl (Ondansetron 4 Mg/2 Ml Vial) 4 mg IV Q6HP PRN PRN Reason: NAUSEA / VOMITING Potassium Chloride (Potassium Cl Sa 10 Meq Tab) 20 meq PO BID [facility] Last Admin: 11/13/20 08:15 Dose: 20 meq Documented by: Sodium Chloride (Flush Normal Saline 10 Ml) 10 ml IV BID [facility] Last Admin: 11/13/20 08:16 Dose: 10 ml Documented by: Sodium Chloride (Flush Normal Saline 10 Ml) 10 ml IV BID [facility] Last Admin: 11/13/20 08:16 Dose: Not Given Documented by: Tramadol HCl (Tramadol Hcl 50 Mg Tab) 50 mg PO Q6H PRN PRN Reason: Pain scale 5-7 (Moderate) Last Admin: 11/10/20 18:39 Dose: 50 mg Documented by: Assessment/ Plan: Nephrology No acute cardiac or pulmonary complaints. No CP or SOB. Feeling better today. No acute events overnight. Vitals, medications, blood work and imaging reviewed in the chart. NAD. Obese. MMM. Neck supple. CTA. RRR. Soft Abd. No C/C/E. No rash. AAO. Normal Speech. A/P: Continue the current POC and Medications other than the changes listed. AM Labs PRN. Recommend daily weight. Please see the orders for complete details. Hyponatremia due to HCTZ and poor oral intake -Continue IVF with NS -Hold HCTZ Hypokalemia -Continue potassium replacement Hypocalcemia -Continue Vitamin D HypoPO4 -Encourage nutrition HTN -Continue amlodipine and metoprolol DM II -RISS Moderate malnutrition -Encourage nutrition Anemia in chronic illness -Monitor H&H
[2020-11-14 05:18] LABS: BUN Blood Urea Nitrogen 7 mg/dL (7-18); Bicarbonate 24 mmol/L (21-32); Glucose Level 107 mg/dL (74-106); Magnesium 2.1 mg/dL (1.8-2.4); Potassium 4.7 mmol/L (3.5-5.1); Sodium Level 127 mmol/L (136-145)
[2020-11-14 05:30] LABS: Absolute Lymphocytes (CBC) 1.8 K/uL (0.7-4.9); Basophils % 0.3 % (0-1.3); Hematocrit 32.1 % (36.0-45.0); Lymphocytes % 12.9 % (15.3-44.8); MPV 6.6 fL (7.6-11.3); RBC Red Blood Cell Count 3.74 M/uL (3.86-4.86)
[2020-11-14] MEDS: INSULIN -REGULAR HUMAN 50 UNIT/0.5 ML ML SQ SCH ×4 (07:30→21:00)
[2020-11-14] MEDS: METOPROLOL XL 50 MG TAB PO SCH (07:47)
[2020-11-14] MEDS: ASPIRIN EC 81 MG TAB PO SCH (07:47)
[2020-11-14] MEDS: POTASSIUM CL SA 10 MEQ TAB PO SCH (07:48)
[2020-11-14] MEDS: ENOXAPARIN 40 MG/0.4 ML SQ SCH (07:48)
[2020-11-14] MEDS: AMLODIPINE 5 MG TAB PO SCH (07:48)
[2020-11-14] MEDS: VITAMIN D 1000 UNIT TAB PO SCH (07:48)
[2020-11-14] MEDS: CEFTRIAXONE/SWI 1gm 1 GM/10 ML SYR IVP SCH (07:49)
[2020-11-14] MEDS: MAGNESIUM OXIDE 400 MG TAB PO SCH (07:49)
[2020-11-14] MEDS: HOME MED 1 EA UNK (Fish Oil/Dha/Epa [Fish Oil 1,200 Mg Fish Oil] Capsule) PO SCH (07:50)
[2020-11-14] MEDS: NS KCL 20MEQ 20 MEQ/1,000 ML BAG IV SCH ×3 (07:50→17:43)
[2020-11-14 08:49] LABS: Platelet Estimate ADEQ
[2020-11-14 08:50] LABS: Blood Morphology Comment NOT SEEN (NOT SEEN)
[2020-11-14] MEDS ORDERED: AZITHROMYCIN 250 MG TAB PO SCH (09:00)
[2020-11-14] MEDS: HYDRALAZINE HCL 20 MG/ML VIAL IV PRN (13:00)
--- NOTE | 2020-11-14 16:41 | P.PN ---
Subjective Date of Service: 11/14/20 Chief Complaint: Generalized weakness, cough, difficulty in ambulation Subjective: Improving (feeling better, sinus pain/pressure nearly resolved completely, mild headache last night. feeling weak, has not gotten up much since admission. otherwise doing ok) Review of Systems 10-point ROS is otherwise unremarkable Physical Examination - Vital Signs Temperature: 98.7 F Blood Pressure: 133/71 Pulse: 124 Respirations: 20 Pulse Ox (%): 97 Assessment & Plan Physician Review Additional Text: Physical Exam General: Alert, In no apparent distress, Oriented x3 HEENT: Mucous membr. moist/pink, Sclerae nonicteric, no maxillary/frontal sinus pressure/pain Respiratory: Clear to auscultation bilaterally, Normal air movement Cardiovascular: No edema, regular rate/rhythm, Normal S1 S2 Gastrointestinal: Normal bowel sounds, Soft and benign, Non-distended, No tenderness Musculoskeletal: No swelling, No tenderness Integumentary: No rashes, No erythema Problem List Generalized weakness Hypokalemia Hyponatremia acute Pansinusitis DM2 HTN Sodium level improving, Serum osmolality and chloride are low suggesting ?dilutional hyponatremia. SIADH is possible. Continue IV normal saline. Free water restriction to 1200ml/day. Monitor BMP and replete other electrolytes as needed. Nephrology consulted, appreciate assistance HCTZ on hold Amlodipine for hypertension. leukocytosis improving Blood culture: no growth Dispo: anticipate dc home in 24-48hrs Time Spent Managing Pts Care (In Minutes): 35
[2020-11-14] MEDS: ACETAMINOPHEN 500 MG TAB PO PRN (20:22)
--- NOTE | 2020-11-14 20:51 | P.PN ---
Date of Service: 11/14/20 Vital Signs Temp Pulse Resp BP Pulse Ox 98.4 F 114 H 16 132/83 97 11/14/20 20:00 11/14/20 20:00 11/14/20 20:00 11/14/20 20:00 11/14/20 20:00 Medications Acetaminophen (Acetaminophen 500 Mg Tab) 500 mg PO Q4HP PRN PRN Reason: TEMP > 100' F Last Admin: 11/14/20 20:22 Dose: 500 mg Documented by: Amlodipine Besylate (Amlodipine 5 Mg Tab) 5 mg PO DAILY [facility] Last Admin: 11/14/20 07:48 Dose: 5 mg Documented by: Aspirin (Aspirin Ec 81 Mg Tab) 81 mg PO DAILY [facility] Last Admin: 11/14/20 07:47 Dose: 81 mg Documented by: Azithromycin (Azithromycin 250 Mg Tab) 500 mg PO DAILY [facility] Last Admin: 11/14/20 07:51 Dose: 500 mg Documented by: Cholecalciferol (Vitamin D 1000 Unit Tab) 1,000 unit PO DAILY [facility] Last Admin: 11/14/20 07:48 Dose: 1,000 unit Documented by: Dextrose (D50w 25 Gm/50 Ml Vial) 12.5 gm IV PRN PRN PRN Reason: HYPOGLYCEMIA Enoxaparin Sodium (Enoxaparin 40 Mg/0.4 Ml) 40 mg SQ DAILY [facility] Last Admin: 11/14/20 07:48 Dose: 40 mg Documented by: Glucagon (Glucagon 1 Mg/Vial) 1 mg IM 1X PRN PRN Reason: HYPOGLYCEMIA Home Med (Fish Oil/Dha/Epa [Fish Oil 1,200 Mg Fish Oil]) 1 tab PO DAILY [facility] Last Admin: 11/14/20 07:50 Dose: Not Given Documented by: Hydralazine HCl (Hydralazine Hcl 20 Mg/Ml Vial) 10 mg IV Q4HP PRN PRN Reason: FOR SBP>160 OR DBP>100 [facility] Last Admin: 11/14/20 13:00 Dose: 10 mg Documented by: Ceftriaxone Sodium/Sodium Chloride (Rocephin 1 Gm/10 Ml Swi Ivp) 1 gm in 10 mls @ 600 mls/hr IVP DAILY [facility]; Protocol Last Admin: 11/14/20 07:49 Dose: 10 mls Documented by: Potassium Chloride/Sodium Chloride (Kcl 20meq/Ns 1000 Ml Iv) 20 meq in 1,000 mls @ 100 mls/hr IV .Q10H [facility] Last Admin: 11/14/20 17:43 Dose: 1,000 mls Documented by: Insulin Human Regular (Insulin -Regular Human 50 Unit/0.5 Ml Ml) 0 unit SQ ACHS [facility]; Protocol Last Admin: 11/14/20 16:30 Dose: Not Given Documented by: Magnesium Oxide (Magnesium Oxide 400 Mg Tab) 200 mg PO DAILY [facility] Last Admin: 11/14/20 07:49 Dose: 200 mg Documented by: Metoprolol Succinate (Metoprolol Xl 50 Mg Tab) 50 mg PO DAILY [facility] Last Admin: 11/14/20 07:47 Dose: 50 mg Documented by: Ondansetron HCl (Ondansetron 4 Mg/2 Ml Vial) 4 mg IV Q6HP PRN PRN Reason: NAUSEA / VOMITING Potassium Chloride (Potassium Cl Sa 10 Meq Tab) 20 meq PO BID [facility] Last Admin: 11/14/20 07:48 Dose: 20 meq Documented by: Sodium Chloride (Flush Normal Saline 10 Ml) 10 ml IV BID [facility] Last Admin: 11/14/20 07:49 Dose: 10 ml Documented by: Sodium Chloride (Flush Normal Saline 10 Ml) 10 ml IV BID [facility] Last Admin: 11/14/20 07:51 Dose: 10 ml Documented by: Tramadol HCl (Tramadol Hcl 50 Mg Tab) 50 mg PO Q6H PRN PRN Reason: Pain scale 5-7 (Moderate) Last Admin: 11/10/20 18:39 Dose: 50 mg Documented by: Assessment/ Plan: Nephrology No acute cardiac or pulmonary complaints. No CP or SOB. Feeling better today. No acute events overnight. Vitals, medications, blood work and imaging reviewed in the chart. NAD. Obese. MMM. Neck supple. CTA. RRR. Soft Abd. No C/C/E. No rash. AAO. Normal Speech. A/P: Continue the current POC and Medications other than the changes listed. AM Labs PRN. Recommend daily weight. Please see the orders for complete details. Hyponatremia due to HCTZ and poor oral intake -Continue IVF with NS -Hold HCTZ -Give a salt tab -Consider demeclocycline Hypokalemia -Discontinue potassium Hypocalcemia -Continue Vitamin D HypoPO4 -Encourage nutrition HTN -Continue Amlodipine and Metoprolol DM II -RISS Moderate malnutrition -Encourage nutrition Anemia in chronic illness -Monitor H&H
[2020-11-15 04:12] LABS: Absolute Lymphocytes (CBC) 1.7 K/uL (0.7-4.9); Basophils % 0.5 % (0-1.3); Hematocrit 28.3 % (36.0-45.0); Lymphocytes % 17.9 % (15.3-44.8); RBC Red Blood Cell Count 3.34 M/uL (3.86-4.86)
[2020-11-15 04:23] LABS: BUN Blood Urea Nitrogen 8 mg/dL (7-18); Bicarbonate 25 mmol/L (21-32); Glucose Level 111 mg/dL (74-106); Magnesium 2.2 mg/dL (1.8-2.4); Phosphorus 3.4 mg/dL (2.5-4.9); Potassium 4.8 mmol/L (3.5-5.1); Sodium Level 129 mmol/L (136-145); Uric Acid 2.5 mg/dL (2.6-6.0)
[2020-11-15] MEDS: NS KCL 20MEQ 20 MEQ/1,000 ML BAG IV SCH (06:00)
[2020-11-15] MEDS: INSULIN -REGULAR HUMAN 50 UNIT/0.5 ML ML SQ SCH ×3 (07:30→16:30)
[2020-11-15] MEDS: HOME MED 1 EA UNK (Fish Oil/Dha/Epa [Fish Oil 1,200 Mg Fish Oil] Capsule) PO SCH (09:00)
[2020-11-15] MEDS: MAGNESIUM OXIDE 400 MG TAB PO SCH (09:00)
[2020-11-15] MEDS ORDERED: AMOX/K CLAV 875 MG TAB PO SCH (09:00)
[2020-11-15] MEDS: ENOXAPARIN 40 MG/0.4 ML SQ SCH (10:25)
[2020-11-15] MEDS: METOPROLOL XL 50 MG TAB PO SCH (10:27)
[2020-11-15] MEDS: AMLODIPINE 5 MG TAB PO SCH (10:27)
[2020-11-15] MEDS: VITAMIN D 1000 UNIT TAB PO SCH (10:28)
[2020-11-15] MEDS: ASPIRIN EC 81 MG TAB PO SCH (10:28)
[2020-11-15] MEDS: SODIUM CHLORIDE 1 GM TAB PO SCH ×3 (10:32→17:26)
[2020-11-15 13:10] VITALS: O2SAT 97
[2020-11-15 16:18] VITALS: BP 158/88; TEMP 97.9
[2020-11-15 16:23] LABS: BUN Blood Urea Nitrogen 8 mg/dL (7-18); Bicarbonate 25 mmol/L (21-32); Glucose Level 118 mg/dL (74-106); Potassium 4.5 mmol/L (3.5-5.1); Sodium Level 128 mmol/L (136-145)
--- NOTE | 2020-11-15 17:14 | P.DS ---
Admission Date: 11/10/20 Discharge Date: 11/15/20 Disposition: ROUTINE DISCHARGE Discharge Condition: GOOD Reason for Admission: Generalized weakness, cough, difficulty in ambulation Consultations: Nephrology - Dr. Pearce Procedures: MRI Brain (11/10): No acute intracranial abnormality seen. Acute pansinusitis. Fluid is present within the maxillary, ethmoid, sphenoid and frontal sinuses CXR (11/10): The lungs are grossly clear. The heart is normal in size. No displaced fractures. CT Head (11/10): Acute pansinusitis. Fluid is present within the maxillary, ethmoid, frontal and sphenoid sinuses. Fluid is present within the maxillary, ethmoid, frontal and sphenoid sinuses CT soft tissue neck (11/10): Mild prominence of the left base of tongue. This has more of the appearance of being edematous rather than an underlying mass being present Problem List Generalized weakness Hypokalemia Hyponatremia, secondary to hypovolemia acute Pansinusitis DM2 HTN Brief History of Present Illness: 70 yrs old Female with past medical history hypertension and diabetes presents with complaints of generalized weakness and fatigue and difficulty in ambulation associated with cough and runny nose for the last 3 days and has been progressively worsening hence was brought to ER. Had fever to start with 3-4 days back of breath fever resolved . Started having sore throat and generalized weakness and complaints of sinus pressure and pain to the forehead and left eyes which was pressure-like feeling. Denies any chills. Denies any nausea vomiting. Associated with dizziness and weakness and had difficulty in ambulation. She had 2 falls. Denies any injury to head. The patient was assessed in the ER and vitals were stable. Her labs were consistent with hypokalemia and hyponatremia and had leukocytosis and CT was suggestive of pansinusitis. MRI was negative for any acute neurologic changes. the patient was admitted for for closer monitoring and correction of electrolytes along with treatment for sinusitis Hospital Course: She was empirically treated for her pansinusitis and slowly had improvement in her symptoms. Nephrology was consulted and patient's hyponatremia was treated with IVF. She had gradual improvement up to 128 on day of discharge. Patient reported her was having leg pain/issues and she needed to be discharged to help him. Her hyponatremia was discussed and patient reported understanding the risks and still wanted to be discharged home. She was discharged home - her steady improvement and her stating she would have f/u labwork in 2 days and f/u with her PCP and Dr. Pearce She was advised to discontinue her HCTZ which was thought to contribute toward her hyponatremia. Vital Signs/Physical Exam: Physical Exam General: Alert, In no apparent distress, Oriented x3 HEENT: Mucous membr. moist/pink, Sclerae nonicteric, no maxillary/frontal sinus pressure/pain Respiratory: Clear to auscultation bilaterally, Normal air movement Cardiovascular: No edema, regular rate/rhythm, Normal S1 S2 Gastrointestinal: Normal bowel sounds, Soft and benign, Non-distended, No tenderness Musculoskeletal: No swelling, No tenderness Integumentary: No rashes, No erythema Temp Pulse Resp BP Pulse Ox 97.9 F 105 H 16 158/88 H 97 11/15/20 16:00 11/15/20 16:00 11/15/20 16:00 11/15/20 16:00 11/15/20 16:00 Laboratory Data at Discharge: WBC 9.70 K/uL (4.3-10.9) D 11/15/20 03:12 Hgb 10.2 g/dL (12.0-15.0) L 11/15/20 03:12 Hct 28.3 % (36.0-45.0) L 11/15/20 03:12 Plt Count 260 K/uL (152-406) 11/15/20 03:12 PT 11.8 SECONDS (9.5-12.5) 11/10/20 11:34 INR 1.03 11/10/20 11:34 APTT 22.5 SECONDS (24.3-36.9) L 11/11/20 06:21 Sodium 128 mmol/L (136-145) L 11/15/20 15:45 Potassium 4.5 mmol/L (3.5-5.1) 11/15/20 15:45 BUN 8 mg/dL (7-18) 11/15/20 15:45 Creatinine 0.35 mg/dL (0.55-1.3) L 11/15/20 15:45 Glucose 118 mg/dL (74-106) H 11/15/20 15:45 Uric Acid 2.5 mg/dL (2.6-6.0) L 11/15/20 03:12 Phosphorus 3.4 mg/dL (2.5-4.9) 11/15/20 03:12 Magnesium 2.2 mg/dL (1.8-2.4) 11/15/20 03:12 Total Bilirubin 0.7 mg/dL (0.2-1.0) 11/10/20 14:02 AST 28 U/L (15-37) 11/10/20 14:02 ALT 41 U/L (12-78) 11/10/20 14:02 Alkaline Phosphatase 136 U/L (45-117) H 11/10/20 14:02 Troponin I < 0.02 ng/mL (0.0-0.045) 11/11/20 06:21 Triglycerides 71 mg/dL (<150) 11/11/20 06:21 Cholesterol 96 mg/dL (<200) 11/11/20 06:21 HDL Cholesterol 41 mg/dL (40-60) 11/11/20 06:21 Cholesterol/HDL Ratio 2.34 11/11/20 06:21 Home Medications: Aspirin [Aspirin EC] 1 tab PO DAILY 11/11/20 Cholecalciferol (Vitamin D3) [Vitamin D 1000 Iu Tab*] 1 tab PO DAILY 11/11/20 Fish Oil/Dha/Epa [Fish Oil 1,200 mg Fish Oil] 1 tab PO DAILY 11/11/20 Losartan Potassium [Cozaar] 1 tab PO DAILY 11/11/20 Magnesium Oxide [Magnesium] 1 tab PO DAILY 11/11/20 Metformin HCl 1 tab PO BID 11/11/20 Metoprolol Succinate 50 mg PO DAILY 11/11/20 Amlodipine [Norvasc*] 5 mg PO DAILY 30 Days #30 tab 11/15/20 Amox/Clavulanate [Augmentin 875-125 Tab*] 875 mg PO BID 5 Days #10 tab 11/15/20 New Medications: Amox/Clavulanate [Augmentin 875-125 Tab*] 875 mg PO BID 5 Days #10 tab Amlodipine [Norvasc*] 5 mg PO DAILY 30 Days #30 tab Physician Discharge Instructions: You were found to have sinus infection and low sodium. Your low sodium was likely due to your low food/water intake and your hydrochlorathiazide. This improved with stopping your medication and given you IV fluids. You are discharged home, to follow up with Dr. Pearce. Please have your blood work done as discussed later this week to check on your sodium levels. Follow up with your PCP within 3-5 days. Diet: ADA Activity: Ad kanika Followup: Michael Pearce DO [ACTIVE - CAN ADMIT] - (call to schedule appointment) OOT,OOT [Primary Care Provider] - Time spent managing pt's care (in minutes): 35
[2020-11-15] MEDS ORDERED: SODIUM CHLORIDE 1 GM TAB PO ONE (21:00)
--- NOTE | 2020-11-15 23:00 | P.PN ---
Date of Service: 11/15/20 Vital Signs Temp Pulse Resp BP Pulse Ox 97.9 F 105 H 16 158/88 H 97 11/15/20 16:00 11/15/20 16:00 11/15/20 16:00 11/15/20 16:00 11/15/20 16:00 Assessment/ Plan: Nephrology No acute cardiac or pulmonary complaints. No CP or SOB. Feeling better today. Wants to go home. No acute events overnight. Vitals, medications, blood work and imaging reviewed in the chart. NAD. Obese. MMM. Neck supple. CTA. RRR. Soft Abd. No C/C/E. No rash. AAO. Normal Speech. A/P: Continue the current POC and Medications other than the changes listed. AM Labs PRN. Recommend daily weight. Please see the orders for complete details. Hyponatremia due to HCTZ and poor oral intake -Continue IVF with NS -Hold HCTZ -Give a salt tab Hypokalemia Hypocalcemia -Continue Vitamin D HypoPO4 -Encourage nutrition HTN -Continue Amlodipine and Metoprolol DM II -RISS Moderate malnutrition -Encourage nutrition Anemia in chronic illness -Monitor H&H Case reviewed with Dr. Young and her PCP, Marleni Lane KITCHEN PORTER. The patient will have a repeat BMP on Friday with her PCP.
--- NOTE | 2020-11-16 16:39 | CON ---
History Of Present Illness: The patient was admitted on 11/10/[address] Reed for swelling of the tongue and calf. She has a history of diabetes and bilateral knee replacement, back surgery and cho lecystectomy. She is allergic to codeine and morphine. She has diabetes and hypertension. She also takes metformin at home. I was consulted because she had sinus pauses of 2.5 and 3.5 seconds while she was asleep. The patient has known sleep apnea. She denied any symptoms with her sleep apnea and denies any symptoms without pauses. Her blood pressure did not drop. Past Medical History: As stated above. Allergies: STATED ABOVE. Review of Systems: Negative. Social History: Negative. Family History: Negative. Medications: Listed earlier. Physical Examination: Vital Signs: Stable, afebrile. HEENT: Negative. Neck: Supple with no bruit. Chest: Clear. Cardiac: Revealed a regular rhythm and rate. No murmurs, gallops, or rubs. Abdomen: Benign. Extremities: Revealed no clubbing, cyanosis, or edema. Diagnostic Data: Showed mild anemia. She had a low creatinine of 0.3. She had hyponatremia. Her E KG showed nonspecific changes. Impression And Plan: The patient with history of hypertension. She is on metoprolol. She is on aml odipine. She is on hydralazine. She is on antibiotics for infection. Her bradycardia is not signif icant, but I think it is secondary to sleep apnea. Her diabetes is well controlled. No changes in m edicine. No cardiac workup recommended at this point. If she becomes lightheaded or dizzy or have a ny syncopal episode, we will re-evaluate. CHAVA/ELIN Voice ID: [id number] Report ID: [id number]
== END 2020-11-15 18:53 | disposition home or self-care (01) | DRG 641 ==
LOC: ER 09:47 → ERHOLD 13:10 → 4TH 18:06
PROVIDERS: ADMIT Family Medicine; ATTEND Hospitalist
DX: E87.1 Hypo-osmolality and hyponatremia (principal); N39.0 Urinary tract infection, site not specified; E44.0 Moderate protein-calorie malnutrition; J01.40 Acute pansinusitis, unspecified; E11.9 Type 2 diabetes mellitus without complications; E87.6 Hypokalemia; E83.51 Hypocalcemia; E86.1 Hypovolemia; D63.8 Anemia in other chronic diseases classified elsewhere; E83.39 Other disorders of phosphorus metabolism; I10 Essential (primary) hypertension; D72.829 Elevated white blood cell count, unspecified; R41.82 Altered mental status, unspecified; T50.2X5A Adverse effect of carbonic-anhydrase inhibitors, benzothiadiazides and other diuretics, initial encounter; Z91.81 History of falling; Z88.5 Allergy status to narcotic agent; Z79.84 Long term (current) use of oral hypoglycemic drugs; Z68.31 Body mass index [BMI] 31.0-31.9, adult; Z90.49 Acquired absence of other specified parts of digestive tract; Z96.653 Presence of artificial knee joint, bilateral; Z79.82 Long term (current) use of aspirin; Z79.899 Other long term (current) drug therapy; Z20.822 Contact with and (suspected) exposure to COVID-19
CPT/HCPCS: 36415; 70450; 70491; 70551; 71045; 80048; 80053; 80061; 80076; 81003; 82553; 82565; 82947; 83036; 83735; 83880; 83930; 83935; 84100; 84132; 84300; 84443; 84484; 84550; 85025; 85610; 85730; 87040; 87086; 87088; 93005; 94760; 96365; 96366; 96367; 97110; 97116; 97161; 97164; 99285; J0360; J0456; J0696; J1650; J3480; J7030; J7050; Q9967; U0003

== ENCOUNTER 2020-12-23 19:09 | Inpatient (IN) | payer OTHER ==
--- OUTSIDE RECORDS SUMMARY | 2020-12-23 19:10 | XMS REPORT | Continuity of Care Document ---
:1950 Author Organization [facility] t Address [address] [place] [address] [place] [id number] Care Team Providers Name Role Phone Domingo Attending Clinician [phone] Problems This patient has no known problems. Allergies, Adverse Reactions, Alerts This patient has no known allergies or adverse reactions. Medications This patient has no known medications. Procedures This patient has no known procedures. Encounters Start End Encounter Admission Attending Care Care Encounter Source Date/Time Date/Time Type Type Clinicians Facility Department ID 2020-12-07 2020-12-07 Outpatient [facility] [id number] 00:00:00 00:00:00 Marleni [id number] 2020-12-01 2020-12-01 Outpatient [facility] [id number] 00:00:00 00:00:00 Marleni [id number] 2020-11-22 2020-11-22 Outpatient [facility] [id number] 00:00:00 00:00:00 Marleni [id number] 2020-11-08 2020-11-08 Outpatient [facility] [id number] 00:00:00 00:00:00 Marleni [id number] 2020-11-06 2020-11-06 [facility] [id number] 00:00:00 00:00:00 Marleni [id number] 2020-11-02 2020-11-02 Outpatient [facility] [id number] 00:00:00 00:00:00 Marleni [id number] Results This patient has no known results.
--- NOTE | 2020-12-23 19:52 | RAD REPORT ---
EXAM DESCRIPTION: CT - Ct Stroke Brain Wo Cont - 12/23/2020 7:47 pm CLINICAL HISTORY: WEAKNESS Headache, drowsiness COMPARISON: Head Brain Wo Cont dated 11/10/2020; Brain Wo Cont dated 11/10/2020 TECHNIQUE: All CT scans are performed using dose optimization technique as appropriate and may inclu de automated exposure control or mA/KV adjustment according to patient size. FINDINGS: No intracranial hemorrhage, hydrocephalus or extra-axial fluid collection.Subtle area of d iminished density measuring 2-3 cm in the left occipital lobe could be related to ischemia. The paranasal sinuses and mastoids are clear. The calvarium is intact. IMPRESSION: Subtle area of diminished density in the left occipital lobe could be related to ischemi a. No acute hemorrhage or midline shift. The findings were discussed with Dr. Bruner in the ER On 12/23/2020 at 7:47 p.m. by telephone.
[2020-12-23 20:05] LABS: Absolute Lymphocytes (CBC) 0.7 K/uL (0.7-4.9); Basophils % 0.1 % (0-1.3); Hematocrit 30.6 % (36.0-45.0); MPV 6.8 fL (7.6-11.3); RBC Red Blood Cell Count 3.52 M/uL (3.86-4.86)
[2020-12-23 20:11] LABS: Protime INR 1.12
[2020-12-23 20:20] LABS: ALT/SGPT 26 U/L (12-78); AST/SGOT 20 U/L (15-37); Alkaline Phosphatase 133 U/L (45-117); BUN Blood Urea Nitrogen 11 mg/dL (7-18); Bicarbonate 24 mmol/L (21-32); Bilirubin Direct 0.2 mg/dL (0-0.2); Bilirubin Total 0.6 mg/dL (0.2-1.0); Glucose Level 97 mg/dL (74-106); Potassium 4.2 mmol/L (3.5-5.1); Protein, Total 7.7 g/dL (6.4-8.2); Sodium Level 133 mmol/L (136-145); Troponin (Emerg Dept Use Only) < 0.02 ng/mL (0.0-0.045)
--- NOTE | 2020-12-23 20:22 | RAD REPORT ---
EXAM DESCRIPTION: RAD - Chest Single View - 12/23/2020 8:00 pm CLINICAL HISTORY: stroke Chest pain. COMPARISON: Chest Single View dated 11/10/2020 FINDINGS: Portable technique limits examination quality. The lungs are grossly clear. The heart is normal in size. No displaced fractures. IMPRESSION: No acute intrathoracic process suspected.
--- NOTE | 2020-12-23 20:24 | EDPHYS ---
Physician Documentation [facility] Name: Leilani Moe Age: 70 yrs Sex: Female : 1950 Arrival Date: 12/23/2020 Time: 19:13 Bed 20 Private MD: Alexia Lane ED Physician Noe Serrano HPI: 12/24 07:14 This 70 yrs old Female presents to ER via Wheelchair with complaints of S/S tw4 of Possible Stroke. 07:14 The patient's problem is reported as dysphasia, visual difficulty, decreased vision in tw4 the right eye. Onset: The symptoms/episode began/occurred today, 5 hour(s) ago. Context: the episode(s) was witnessed, symptoms became apparent at 14:00. The symptoms are alleviated by nothing. The symptoms are aggravated by nothing. Associated signs and symptoms: The patient has no apparent associated signs or symptoms. Severity of symptoms: At their worst the symptoms were mild in the emergency department the symptoms are unchanged. Patient's baseline: Neuro: alert and fully oriented, Motor: no deficits, Ambulation: walks without assistance, Speech: normal. Historical: - Allergies: 12/23 19:42 Codeine; rr5 19:42 Morphine; rr5 - Home Meds: 19:42 Metformin Oral [Active]; rr5 19:44 metoprolol succinate oral oral [Active]; Vitamin D Oral [Active]; Magnesium Oxide Oral rr5 [Active]; Fish Oil oral oral [Active]; Aspirin Oral [Active]; - PMHx: 19:42 Diabetes - IDDM; Hypertension; rr5 - PSHx: 19:42 Cholecystectomy; rr5 - Immunization history:: Adult Immunizations up to date. - Social history:: Smoking status: unknown. ROS: 12/24 07:14 Constitutional: Negative for fever, chills, and weight loss, Eyes: Negative for injury, tw4 pain, redness, and discharge, Cardiovascular: Negative for chest pain, palpitations, and edema, Respiratory: Negative for shortness of breath, cough, wheezing, and pleuritic chest pain, Abdomen/GI: Negative for abdominal pain, nausea, vomiting, diarrhea, and constipation, Back: Negative for injury and pain. Neuro: Positive for Exam: 07:14 Radiologist reports: lleft occipital area of ischemia tw4 07:14 Constitutional: This is a well developed, well nourished patient who is awake, alert, and in no acute distress. Head/Face: Normocephalic, atraumatic. Chest/axilla: Normal chest wall appearance and motion. Nontender with no deformity. No lesions are appreciated. Cardiovascular: Regular rate and rhythm with a normal S1 and S2. No gallops, murmurs, or rubs. Normal PMI, no JVD. No pulse deficits. Respiratory: Lungs have equal breath sounds bilaterally, clear to auscultation and percussion. No rales, rhonchi or wheezes noted. No increased work of breathing, no retractions or nasal flaring. Abdomen/GI: Soft, non-tender, with normal bowel sounds. No distension or tympany. No guarding or rebound. No evidence of tenderness throughout. Back: No spinal tenderness. No costovertebral tenderness. Full range of motion. 07:14 MS/ Extremity: Pulses equal, no cyanosis. Neurovascular intact. Full, normal range of motion. 07:14 Musculoskeletal/extremity: Extremities: noted in the : 07:14 Neuro: Orientation: is normal, Mentation: is normal, Memory: is normal, Cranial nerves: low altitudinal loss noted, Funduscopic exam reveals no obvious abnormalities, discs that are sharp, extraocular movements are intact, Facial palsy and sensory deficits are absent. Vital Signs: 06/05 19:35 BP 161 / 93; Pulse 105; Resp 19; Temp 99; Pulse Ox 98% ; Weight 74.84 kg; Height 5 ft. rr5 2 in. (157.48 cm); 20:00 BP 158 / 88; Pulse 96; Resp 18; Pulse Ox 99% on R/A; lp1 20:30 BP 156 / 74; Pulse 105; Resp 20; Pulse Ox 100% on R/A; lp1 21:00 BP 148 / 73; Pulse 95; Resp 18; Pulse Ox 99% on R/A; lp1 21:30 BP 151 / 76; Pulse 102; Resp 20; Pulse Ox 99% on R/A; lp1 22:00 BP 150 / 74; Pulse 73; Resp 20; Temp 99.5(O); Pulse Ox 97% on R/A; lp1 19:35 Body Mass Index 30.18 (74.84 kg, 157.48 cm) rr5 NIH Stroke Scale Scores: 20:00 NIHSS Score: 4 lp1 20:13 NIHSS Score: 6 tw4 MDM: 19:35 Patient medically screened. 4 12/24 07:17 Data reviewed: vital signs, nurses notes. Data reviewed: lab test result(s), EKG, tw4 radiologic studies, CT scan. Data interpreted: Pulse oximetry: Interpretation: normal. Test interpretation: by ED physician or midlevel provider: plain radiologic studies. Counseling: I had a detailed discussion with the patient and/or guardian regarding: the historical points, exam findings, and any diagnostic results supporting the discharge/admit diagnosis, lab results, radiology results. Physician consultation: Jet Shepherd MD regarding admission, to the telemetry unit. and will see patient in inpatient room. 12/23 19:42 Order name: Troponin (emerg Dept Use Only) [facility] 12/23 19:42 Order name: Hepatic Function [facility] 12/23 19:42 Order name: Basic Metabolic Panel [facility] 12/23 19:42 Order name: CBC with Diff tw 12/23 19:42 Order name: Protime (+inr) [facility] 12/23 19:42 Order name: Ptt, Activated tw 12/23 20:07 Order name: Glucose, Ancillary Testing [facility] 12/23 20:16 Order name: CBC Smear Scan [facility] 12/23 21:35 Order name: SARS-COV-2 RT PCR [facility] 12/23 19:42 Order name: CT Stroke Brain w/o Contrast [facility] 12/23 19:42 Order name: Stroke CXR 1 View [facility] 12/23 19:42 Order name: EKG; Complete Time: 19:42 [facility] 12/23 19:42 Order name: Accucheck; Complete Time: 19:59 [facility] 12/23 19:42 Order name: Cardiac monitoring; Complete Time: 19:59 [facility] 12/23 19:42 Order name: EKG - Nurse/Tech; Complete Time: 19:59 [facility] 12/23 19:42 Order name: EKG; Complete Time: 19:43 [facility] 12/23 20:20 Order name: CT Head Angio; Complete Time: 21:09 [facility] 12/23 20:20 Order name: CT Neck Angio; Complete Time: 21:09 [facility] 12/23 21:15 Order name: CONS Physician Consult [facility] 12/23 19:42 Order name: IV Saline Lock; Complete Time: 19:59 tw4 12/23 19:42 Order name: Labs collected and sent; Complete Time: 19:59 tw4 12/23 19:42 Order name: NPO; Complete Time: 19:59 tw4 12/23 19:42 Order name: O2 Per Protocol; Complete Time: 19:59 tw4 12/23 19:42 Order name: O2 Sat Monitoring; Complete Time: 20:00 tw4 12/23 19:42 Order name: Stroke Swallow Screen; Complete Time: 20:48 tw4 12/23 19:42 Order name: O2 Sat Monitoring; Complete Time: 19:45 mw2 Administered Medications: 12/23 20:56 Drug: Zofran (Ondansetron) 4 mg Route: IVP; Site: left antecubital; lp1 21:25 Follow up: Response: Nausea is decreased lp1 21:20 Drug: PlaVIX (clopidogrel) 300 mg Route: PO; lp1 22:03 Follow up: Response: No adverse reaction lp1 21:20 Drug: Aspirin Chewable Tablet 324 mg Route: PO; lp1 22:03 Follow up: Response: No adverse reaction lp1 21:20 Drug: Acetaminophen 650 mg Route: PO; lp1 22:03 Follow up: Response: No adverse reaction lp1 Disposition: 12/23/20 20:23 Hospitalization ordered by Jet Shepherd for Inpatient Admission. Preliminary diagnosis are Cerebrovascular disorders in diseases classified elsewhere, Acute stroke. - Bed requested for Telemetry/MedSurg (Inpatient). - Status is Inpatient Admission. lp1 - Condition is Stable. - Problem is new. - Symptoms are unchanged. NIH Stroke Scale - NIH Stroke Score Date: 12/23/2020 Time: 20:00 Total Score = 4 1a. Level of Consciousness (LOC) - 0(Alert) 1b. Level of Consciousness (LOC) (Year \T\ Age) - 0(Both) 1c. LOC Commands (Open \T\ Closes Eyes/Shuttle Preparation Supervisor) - 0(Both) 2. Best Gaze (Lateral Gaze Paresis) - 0(Normal) 3. Visual Field Loss - 2(Complete hemianopia) 4. Facial Palsy - 0(Normal) 5a. Left Arm: Motor (10-second hold) - 0(No drift) 5b. Right Arm: Motor (10-second hold) - 0(No drift) 6a. Left Leg: Motor (5-second hold - always test supine) - 0(No drift) 6b. Right Leg: Motor (5-second hold - always test supine) - 0(No drift) 7. Limb Ataxia (finger/nose \T\ heel/santos - test with eyes open) - 0(Absent) 8. Sensory Loss (pinprick arms/legs/face) - 0(Normal) 9. Best Language: Aphasia (description/naming/reading) - 0(No aphasia) 10. Dysarthria (speech clarity - read or repeat words) - 2(Severe) 11. Extinction and Inattention (visual/tactile/auditory/spatial/personal) - 0(No abnormality) Initials: lp1 NIH Stroke Scale - NIH Stroke Score Date: 12/23/2020 Time: 20:13 Total Score = 6 1a. Level of Consciousness (LOC) - 0(Alert) 1b. Level of Consciousness (LOC) (Year \T\ Age) - 0(Both) 1c. LOC Commands (Open \T\ Closes Eyes/Shuttle Preparation Supervisor) - 0(Both) 2. Best Gaze (Lateral Gaze Paresis) - 0(Normal) 3. Visual Field Loss - 2(Complete hemianopia) 4. Facial Palsy - 0(Normal) 5a. Left Arm: Motor (10-second hold) - 0(No drift) 5b. Right Arm: Motor (10-second hold) - 0(No drift) 6a. Left Leg: Motor (5-second hold - always test supine) - 0(No drift) 6b. Right Leg: Motor (5-second hold - always test supine) - 0(No drift) 7. Limb Ataxia (finger/nose \T\ heel/santos - test with eyes open) - 0(Absent) 8. Sensory Loss (pinprick arms/legs/face) - 0(Normal) 9. Best Language: Aphasia (description/naming/reading) - 2(Severe aphasia) 10. Dysarthria (speech clarity - read or repeat words) - 2(Severe) 11. Extinction and Inattention (visual/tactile/auditory/spatial/personal) - 0(No abnormality) Initials: tw4 Signatures: Dispatcher [employer] EDMS Negra King RN RN Megan Arrington RN RN lp1 Noe Serrano MD MD tw4 SunrayCory block mw2 Bolivar Alexander, RN RN rr5 Brayden Mae PA PA ej Corrections: (The following items were deleted from the chart) 19:43 19:43 BASIC METABOLIC PANEL+C.LAB.BRZ ordered. EDOH EDMS 19:43 19:43 CBC+H.LAB.BRZ ordered. EDOH EDMS 19:43 19:43 PROTIME (+INR)+COAG.LAB.BRZ ordered. EDOH EDMS 19:43 19:43 PTT, ACTIVATED+COAG.LAB.BRZ ordered. EDOH EDMS 19:44 19:42 Stroke Swallow Screen ordered. mw2 mw2 19:44 19:43 CT-STROKE BRAIN W/O CONTRAST+CT.RAD.BRZ ordered. EDOH EDMS 19:45 19:42 Accucheck ordered. mw2 mw2 19:45 19:42 Cardiac monitoring ordered. [facility] 19:45 19:42 Oxygen Per Protocol ordered. [facility] mw2 19:46 19:42 EKG - Nurse/Tech ordered. mw2 mw2 19:46 19:42 IV Saline Lock ordered. mw2 mw2 19:46 19:42 NPO ordered. 2 mw2 19:46 19:43 Chest Single View+RAD.RAD.BRZ ordered. EDOH EDMS 19:47 19:42 Labs collected and sent ordered. [facility] mw2 20:37 20:09 CORONAVIRUS+MR.LAB.BRZ ordered. EDOH EDMS 21:36 20:23 Hospitalization Ordered by Jet Shepherd MD for Inpatient Admission. Preliminary diagnosis is Cerebrovascular disorders in diseases classified elsewhere; Acute stroke. Bed requested for Telemetry/MedSurg (Inpatient). Status is Inpatient Admission. Condition is Stable. Problem is new. Symptoms are unchanged. tw4 21:37 21:36 12/23/2020 20:23 Hospitalization Ordered by Jet Shepherd MD for mw Inpatient Admission. Preliminary diagnosis is Cerebrovascular disorders in diseases classified elsewhere; Acute stroke. Bed requested for Telemetry/MedSurg (Inpatient). Status is Inpatient Admission. Condition is Stable. Problem is new. Symptoms are unchanged. 22:11 21:37 12/23/2020 20:23 Hospitalization Ordered by Jet Shepherd MD for lp1 Inpatient Admission. Preliminary diagnosis is Cerebrovascular disorders in diseases classified elsewhere; Acute stroke. Bed requested for Telemetry/MedSurg (Inpatient). Status is Inpatient Admission. Condition is Stable. Problem is new. Symptoms are unchanged. mw
--- NOTE | 2020-12-23 20:24 | ER ---
Nurse's Notes [facility] Name: Leilani Moe Age: 70 yrs Sex: Female : 1950 Arrival Date: 12/23/2020 Time: 19:13 Bed 20 Private MD: Alexia Lane Diagnosis: Cerebrovascular disorders in diseases classified elsewhere;Acute stroke Presentation: 12/23 19:35 Chief complaint: Patient's son or daughter states: she complaints that her right eye rr5 couldn't see the half of it, episodes of confusion, unsteady gait and tongue swollen started 2PM today. 19:35 Coronavirus screen: Client denies travel out of the [place] in the last 14 days. At this rr5 time, the client does not indicate any symptoms associated with coronavirus-19. Ebola Screen: Patient negative for fever greater than or equal to 101.5 degrees Fahrenheit, and additional compatible Ebola Virus Disease symptoms Patient denies exposure to infectious person. Patient denies travel to an Ebola-affected area in the 21 days before illness onset. An acute neurological deficit is present. The charge nurse has been notified. Initial Sepsis Screen: Does the patient meet any 2 criteria? No. Patient's initial sepsis screen is negative. Does the patient have a suspected source of infection? No. Patient's initial sepsis screen is negative. Risk Assessment: Do you want to hurt yourself or someone else? Patient reports no desire to harm self or others. Note send straight to CT scan. Onset of symptoms was December 23, 2020 at 14:00. 19:35 Method Of Arrival: Wheelchair rr5 19:35 Acuity: ANTONIO 2 rr5 Triage Assessment: 22:01 The onset of the patients symptoms was December 23, 2020 at 14:00. lp1 Stroke Activation: Symtpom onset >3 hours and < 6 hours Physician: Stroke Attending; Name: dr. joyner; Notified At: 19:35; Arrived At: 19:35 Physician: Chief Stroke Resident; Name: ; Notified At: 19:35; Arrived At: Physician: Stroke Resident; Name: ; Notified At: 19:35; Arrived At: Physician: ED Attending; Name: ; Notified At: 19:35; Arrived At: Physician: ED Resident; Name: ; Notified At: 19:35; Arrived At: Historical: - Allergies: 19:42 Codeine; rr5 19:42 Morphine; rr5 - Home Meds: 19:42 Metformin Oral [Active]; rr5 19:44 metoprolol succinate oral oral [Active]; Vitamin D Oral [Active]; Magnesium Oxide Oral rr5 [Active]; Fish Oil oral oral [Active]; Aspirin Oral [Active]; - PMHx: 19:42 Diabetes - IDDM; Hypertension; rr5 - PSHx: 19:42 Cholecystectomy; rr5 - Immunization history:: Adult Immunizations up to date. - Social history:: Smoking status: unknown. Screenin:35 VAN Screening: Arm Drift: Patient shows no arm weakness. Patient is VAN negative. 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 Provider notified of +VAN scoring. Aphasia: No aphasia noted. Neglect: No neglect noted. 20:00 Fall Risk Total Mckinney Fall Scale indicates High Risk Score (45 or more points). Fall lp1 prevention measures have been instituted. Side Rails Up X 2 Family Present and informed to notify staff if the need to leave the bedside As available patient and family educated on Fall Prevention Program and Strategies. 20:56 Abuse screen: Denies threats or abuse. Denies injuries from another. Nutritional lp1 screening: No deficits noted. Tuberculosis screening: No symptoms or risk factors identified. Assessment: 20:00 Patient has been NPO before screening. The patient is alert, and able to follow lp1 commands. The patient does not exhibit slurred or garbled speech. The patient is not exhibiting difficulty speaking. The patient does not exhibit difficulty understanding words. The patient is able to swallow own secretions with no drooling or need for suction. Patient tolerated one teaspoon of water. No drooling, immediate coughing, gurgling, or clearing of the throat was noted. The patient tolerated 90mL of water. No drooling, immediate coughing, gurgling, or clearing of the throat was noted. The patient passed the bedside swallow screening. Oral medications may be given as ordered. Contact Physician for further diet orders. Provider notified of bedside swallow screening results: Noe Joyner MD. 20:00 T-PA (Activase) Screening: Contraindications: Patient reports onset of signs and lp1 symptoms of stroke greater than 6 hours ago: Yes. 20:00 VAN Scoring: Arm Drift: Patients demonstrates NO arm weakness. Patient is VAN Negative. lp1 Visual Disturbance: Field Cut: Abnormal visual handley noted. Provider notified of +VAN scoring. Lack of right peripheral vision; reports seeing "black" Aphasia: No aphasia noted. Neglect: No neglect noted. 20:05 General: Appears in no apparent distress. Behavior is calm, cooperative. Pain: Denies lp1 pain. Neuro: Level of Consciousness is awake, alert, obeys commands, Oriented to person, place, time, situation, Cattle Dipper are equal bilaterally Moves all extremities. Full function Gait is steady, Speech is normal, Facial symmetry appears normal, Pupils are PERRLA, Intact Reports headache frontal area. Cardiovascular: Patient's skin is warm and dry. Respiratory: Respiratory effort is even, unlabored, Breath sounds are clear bilaterally. GI: No signs and/or symptoms were reported involving the gastrointestinal system. : No signs and/or symptoms were reported regarding the genitourinary system. EENT: No signs and/or symptoms were reported regarding the EENT system. Derm: Skin is intact, Skin is dry, Skin is pale. Musculoskeletal: No deficits noted. 20:55 Reassessment: Patient returned from CT, vomiting on arrival back to room; Verbal order lp1 from Dr. Joyner for Zofran 4mg IV now. Vital Signs: 19:35 BP 161 / 93; Pulse 105; Resp 19; Temp 99; Pulse Ox 98% ; Weight 74.84 kg; Height 5 ft. rr5 2 in. (157.48 cm); 20:00 BP 158 / 88; Pulse 96; Resp 18; Pulse Ox 99% on R/A; lp1 20:30 BP 156 / 74; Pulse 105; Resp 20; Pulse Ox 100% on R/A; lp1 21:00 BP 148 / 73; Pulse 95; Resp 18; Pulse Ox 99% on R/A; lp1 21:30 BP 151 / 76; Pulse 102; Resp 20; Pulse Ox 99% on R/A; lp1 22:00 BP 150 / 74; Pulse 73; Resp 20; Temp 99.5(O); Pulse Ox 97% on R/A; lp1 19:35 Body Mass Index 30.18 (74.84 kg, 157.48 cm) rr5 NIH Stroke Scale Scores: 20:00 NIHSS Score: 4 lp1 20:13 NIHSS Score: 6 tw4 ED Course: 19:13 Patient arrived in ED. mr 19:[address] is Private Physician. mr 19:35 Noe Joyner MD is Attending Physician. tw4 19:41 Triage completed. rr5 19:44 Arm band placed on. rr5 19:47 CT Stroke Brain w/o Contrast In Process Unspecified. EDMS 19:50 Placed in gown. Bed in low position. Call light in reach. Side rails up X2. lp1 19:50 Inserted saline lock: 20 gauge in left antecubital area, using aseptic technique. Blood lp1 collected. 19:59 Megan Arrington RN is Primary Nurse. lp1 20:00 Stroke CXR 1 View In Process Unspecified. EDMS 20:22 Jet Shepherd MD is Hospitalizing Provider. tw4 20:45 CT Head Angio In Process Unspecified. EDMS 20:47 CT Neck Angio In Process Unspecified. EDMS 21:58 No provider procedures requiring assistance completed. Patient admitted, IV remains in lp1 place. Administered Medications: 20:56 Drug: Zofran (Ondansetron) 4 mg Route: IVP; Site: left antecubital; lp1 21:25 Follow up: Response: Nausea is decreased lp1 21:20 Drug: PlaVIX (clopidogrel) 300 mg Route: PO; lp1 22:03 Follow up: Response: No adverse reaction lp1 21:20 Drug: Aspirin Chewable Tablet 324 mg Route: PO; lp1 22:03 Follow up: Response: No adverse reaction lp1 21:20 Drug: Acetaminophen 650 mg Route: PO; lp1 22:03 Follow up: Response: No adverse reaction lp1 Outcome: 20:23 Decision to Hospitalize by Provider. tw4 21:58 Admitted to Med/surg room 224, with chart, Report called to SANGEETA Rushing lp1 21:58 Condition: stable 21:58 Instructed on the need for admit. 22:11 Patient left the ED. lp1 NIH Stroke Scale - NIH Stroke Score Date: 12/23/2020 Time: 20:00 Total Score = 4 1a. Level of Consciousness (LOC) - 0(Alert) 1b. Level of Consciousness (LOC) (Year \\T\\ Age) - 0(Both) 1c. LOC Commands (Open \\T\\ Closes Eyes/Truck Driver) - 0(Both) 2. Best Gaze (Lateral Gaze Paresis) - 0(Normal) 3. Visual Field Loss - 2(Complete hemianopia) 4. Facial Palsy - 0(Normal) 5a. Left Arm: Motor (10-second hold) - 0(No drift) 5b. Right Arm: Motor (10-second hold) - 0(No drift) 6a. Left Leg: Motor (5-second hold - always test supine) - 0(No drift) 6b. Right Leg: Motor (5-second hold - always test supine) - 0(No drift) 7. Limb Ataxia (finger/nose \\T\\ heel/santos - test with eyes open) - 0(Absent) 8. Sensory Loss (pinprick arms/legs/face) - 0(Normal) 9. Best Language: Aphasia (description/naming/reading) - 0(No aphasia) 10. Dysarthria (speech clarity - read or repeat words) - 2(Severe) 11. Extinction and Inattention (visual/tactile/auditory/spatial/personal) - 0(No abnormality) Initials: lp1 NIH Stroke Scale - NIH Stroke Score Date: 12/23/2020 Time: 20:13 Total Score = 6 1a. Level of Consciousness (LOC) - 0(Alert) 1b. Level of Consciousness (LOC) (Year \\T\\ Age) - 0(Both) 1c. LOC Commands (Open \\T\\ Closes Eyes/Truck Driver) - 0(Both) 2. Best Gaze (Lateral Gaze Paresis) - 0(Normal) 3. Visual Field Loss - 2(Complete hemianopia) 4. Facial Palsy - 0(Normal) 5a. Left Arm: Motor (10-second hold) - 0(No drift) 5b. Right Arm: Motor (10-second hold) - 0(No drift) 6a. Left Leg: Motor (5-second hold - always test supine) - 0(No drift) 6b. Right Leg: Motor (5-second hold - always test supine) - 0(No drift) 7. Limb Ataxia (finger/nose \\T\\ heel/santos - test with eyes open) - 0(Absent) 8. Sensory Loss (pinprick arms/legs/face) - 0(Normal) 9. Best Language: Aphasia (description/naming/reading) - 2(Severe aphasia) 10. Dysarthria (speech clarity - read or repeat words) - 2(Severe) 11. Extinction and Inattention (visual/tactile/auditory/spatial/personal) - 0(No abnormality) Initials: tw4 Signatures: Dispatcher [employer] [facility] H[employer] Ram mr Megan Arrington, RN RN lp1 Noe Joyner MD MD tw4 Bolivar Alexander, SANGEETA RN rr5 Corrections: (The following items were deleted from the chart) 19:45 19:44 VAN Screening: Arm Drift: Patient shows no arm weakness. Patient is VAN rr5 negative. 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 Provider notified of +VAN scoring. Aphasia: No aphasia noted. Neglect: No neglect noted. rr5 22:02 20:05 Neuro: Level of Consciousness is awake, alert, obeys commands, Oriented lp1 to person, place, time, situation, Cattle Dipper are equal bilaterally Moves all extremities. Full function Gait is steady, Speech is normal, Facial symmetry appears normal, Pupils are PERRLA, Intact lp1
[2020-12-23 20:50] LABS: Blood Morphology Comment NOT SEEN (NOT SEEN); Platelet Estimate ADEQ; White Blood Cell Scan OK (OK)
--- NOTE | 2020-12-23 20:52 | RAD REPORT ---
EXAM DESCRIPTION: CT - Head angio - 12/23/2020 8:45 pm CLINICAL HISTORY: SLURRED SPEECH Headache, drowsiness, CVA symptomology COMPARISON: Ct Stroke Brain Wo Cont dated 12/23/2020; Head Brain Wo Cont dated 11/10/2020 TECHNIQUE: CT angiography of the head was performed with MIPs. All CT scans are performed using dose optimization technique as appropriate and may include automated exposure control or mA/KV adjustment according to patient size. FINDINGS: No evidence of aneurysm is detected. No flow-limiting stenosis or vascular malformation id entified. Antegrade flow is seen in the vertebral arteries. The left vertebral artery is dominant. The visualized dural venous sinuses are patent. IMPRESSION: No significant flow abnormality is detected.
--- NOTE | 2020-12-23 20:54 | RAD REPORT ---
EXAM DESCRIPTION: CT - Neck Angio - 12/23/2020 8:47 pm CLINICAL HISTORY: cva Headache, drowsiness, CVA symptomology COMPARISON: Soft Tissue Neck W/Contr dated 11/10/2020 TECHNIQUE: CT angiography of the neck vessels was performed with MIPs. All CT scans are performed using dose optimization technique as appropriate and may include automated exposure control or mA/KV adjustment according to patient size. FINDINGS: A left aortic arch is identified with normal three vessel configuration of the great vesse ls. No significant flow abnormality is seen of the common carotid bilaterally. No significant stenosis is identified involving the cervical segments of both internal carotid arteri es. Normal flow is seen within both vertebral arteries. IMPRESSION: No significant flow abnormality of the neck vessels is identified.
[2020-12-23] MEDS ORDERED: ONDANSETRON 4 MG/2 ML VIAL ONE (21:11)
[2020-12-23] MEDS ORDERED: ACETAMINOPHEN 325 MG TABLET ONE (21:31)
[2020-12-23] MEDS ORDERED: CLOPIDOGREL 75 MG TABLET ONE (21:31)
[2020-12-23] MEDS ORDERED: ASPIRIN 81 MG CHEWABLE TABLET ONE (21:35)
--- NOTE | 2020-12-23 21:51 | P.HP ---
Certification for Inpatient Patient admitted to: Inpatient With expected LOS: >2 Midnights Patient will require the following post-hospital care: None Practitioner: I am a practitioner with admitting privileges, knowledge of patient current condition, hospital course, and medical plan of care. Services: Services provided to patient in accordance with Admission requirements found in Title 42 Section 412.3 of the Code of Federal Regulations <Brayden Mae - Last Filed: 12/23/20 22:16> Patient History Date of Service: 12/23/20 Primary Care Provider: Domingo Reason for admission: stroke History of Present Illness: Ms. Moe is a 70 yo F with HTN and DM here today with hemianopsis and dysarthria. Around 2pm, she was trying to send a text when she reports light started flashing in her eyes and when it stopped, she could no longer see. She reports fatigue and headache. She has difficulty finding words, but knows what she wants to say. Denies weakness, aphasia, ataxia, sensation, diplopia, N/V, vertigo, pain. CT Head showed subtle area of diminished density in left occipital lobe could be related to ischemia. - Past Medical/Surgical History Diabetic: Yes -: Diabetes, hypertension -: Cholecystectomy -: knee replacement - Family History Family History: Reviewed- Non-Contributory - Social History Smoking Status: Never smoker Alcohol use: No CD- Drugs: No Caffeine use: Yes Place of Residence: Home <Brayden Mae - Last Filed: 12/23/20 22:16> Date of Service: 12/24/20 <Jet Shepherd - Last Filed: 12/24/20 17:33> Allergies codeine Allergy (Verified 12/23/20 22:35) Itching/Hives/Rash morphine Adverse Reaction (Verified 12/23/20 22:35) i got real sick and throwing up Home Medications: Aspirin [Aspirin EC] 81 mg PO DAILY 11/11/20 Cholecalciferol (Vitamin D3) [Vitamin D 1000 Iu Tab*] 1 tab PO DAILY 11/11/20 Fish Oil/Dha/Epa [Fish Oil 1,200 mg Fish Oil] 1 tab PO DAILY 11/11/20 Magnesium Oxide [Magnesium] 1 tab PO DAILY 11/11/20 Metformin HCl 1 tab PO BID 11/11/20 Metoprolol Succinate [Toprol Xl*] 25 mg PO BID 12/24/20 Review of Systems 10-point ROS is otherwise unremarkable Eyes: Vision Change Neurological: Change in Speech <Brayden Mae - Last Filed: 12/23/20 22:16> Physical Examination - Physical Exam General: Alert, Oriented x3, Cooperative HEENT: Atraumatic, Normocephalic, PERRLA (abnormal vision handley ), Mucous membr. moist/pink, EOMI, Sclerae nonicteric Neck: Supple, 2+ carotid pulse no bruit, No LAD, Without JVD or thyroid abnormal ity Respiratory: Clear to auscultation bilaterally, Normal air movement Cardiovascular: Regular rate/rhythm, Normal S1 S2 Gastrointestinal: Normal bowel sounds, No tenderness Musculoskeletal: No tenderness Integumentary: No rashes Neurological: Normal strength at 5/5 x4 extr, Normal tone, Cranial nerves 3-12 intact, Normal reflexes 2+, Normal affect, Abnormal speech Lymphatics: No axilla or inguinal lymphadenopathy - Studies Laboratory Data (last 24 hrs) 12/23/20 19:54: PT 12.9 H, INR 1.12, APTT 25.4 12/23/20 19:54: WBC 10.40, Hgb 10.5 L, Hct 30.6 L, Plt Count 188 12/23/20 19:54: Sodium 133 L, Potassium 4.2, BUN 11, Creatinine 0.56, Glucose 97, Total Bilirubin 0.6, AST 20, ALT 26, Alkaline Phosphatase 133 H <Brayden Mae - Last Filed: 12/23/20 22:16> - Studies Laboratory Data (last 24 hrs) 12/23/20 19:54: PT 12.9 H, INR 1.12, APTT 25.4 12/23/20 19:54: WBC 10.40, Hgb 10.5 L, Hct 30.6 L, Plt Count 188 12/23/20 19:54: Sodium 133 L, Potassium 4.2, BUN 11, Creatinine 0.56, Glucose 97, Total Bilirubin 0.6, AST 20, ALT 26, Alkaline Phosphatase 133 H <Jet Shepherd - Last Filed: 12/24/20 17:33> Assessment and Plan - Problems (Diagnosis) (1) Diabetes Current Visit: No Status: Chronic Qualifiers: Diabetes mellitus type: type 2 Diabetes mellitus intermediate insulin use: without intermodal truck driver use Diabetes mellitus complication status: without complication Qualified Code(s): E11.9 - Type 2 diabetes mellitus without complications (2) Hypertension Current Visit: No Status: Chronic Qualifiers: Hypertension type: essential hypertension Qualified Code(s): I10 - Essential (primary) hypertension (3) Stroke Current Visit: Yes Status: Acute Qualifiers: CVA mechanism: unspecified Qualified Code(s): I63.9 - Cerebral infarction, unspecified - Plan neurology consulted daily folic acid, statin, ASA, plavix NPO if fails bedside swallow speech therapy consult, PT consult ECHO and MRI stroke protocol pending lipid profile pending permissive HTN on telemetry DVT ppx Discharge Plan: Home Plan to discharge in: 72 Hours - Advance Directives Does patient have a Living Will: No Does patient have a Durable POA for Healthcare: No - Code Status/Comfort Care Code Status Assessed: Yes (full code) Critical Care: No Time Spent Managing Pts Care (In Minutes): 70 <Brayden Mae - Last Filed: 12/23/20 22:16> Date of Service: 12/24/20 Subjective: Family things that patient had a similar event occur about a month ago. At that time patient was diagnose with hyponatremia. Patient has been at home having some issues but symptom mainly started a couple days ago when she fell like she lost vision in her eye. She has also been fumbling her words for the last 24-48 hr. Physical Examination Vitals: Afebrile vital signs are stable Physical exam is unchanged Cardiovascular: Regular rate rhythm no murmurs Lungs: Clear bilaterally Neuro: Patient with aphasia; patient with left temporal hemianopsia; patient with left-sided weakness and left-sided pronator drift Diagnostic data has been reviewed ASST: 1. Acute CVA-left MCA territory/left occipital lobe PLAN: 1. Physical therapy evaluation 2. Speech therapy evaluation 3. Anti-platelet therapy and statin therapy 4. Lipid profile in the morning 5. MRI of the brain/echocardiogram/carotid Doppler 6. Physically patient is doing well and may benefit more from outpatient physical therapy and inpatient rehab 7. Neurology consultation 8. Permissive hypertension and gradual blood pressure control 9. Neuro checks every 4 hr 10. GI and DVT prophylaxis <Jet Shepherd - Last Filed: 12/24/20 17:33>
[2020-12-23] MEDS ORDERED: ONDANSETRON 4 MG/2 ML VIAL IV PRN (22:11)
[2020-12-23 22:34] VITALS: BMI 30.9
[2020-12-23] MEDS: FOLIC ACID 1 MG TABLET PO SCH (23:49)
[2020-12-24] MEDS: ACETAMINOPHEN 500 MG TAB PO PRN ×4 (00:53→21:45)
[2020-12-24 05:27] LABS: Absolute Lymphocytes (CBC) 1.3 K/uL (0.7-4.9); Basophils % 0.3 % (0-1.3); Lymphocytes % 13.8 % (15.3-44.8); MPV 6.7 fL (7.6-11.3); RBC Red Blood Cell Count 3.21 M/uL (3.86-4.86)
[2020-12-24 05:56] LABS: Urine Appearance CLEAR (Clear); Urine Blood NEGATIVE (Negative); Urine Color YELLOW (Yellow); Urine Glucose NEGATIVE (Negative); Urine Protein NEGATIVE (Negative); Urine Specific Gravity >=1.030 (1.005-1.030); Urine Urobilinogen 0.2 mg/dL (0.2-1.0)
[2020-12-24 05:58] LABS: Urine Bilirubin NEGATIVE (Negative); Urine Microscopic Reflex NO UMIC
[2020-12-24 06:08] LABS: ALT/SGPT 22 U/L (12-78); AST/SGOT 17 U/L (15-37); Albumin 2.7 g/dL (3.4-5.0); Alkaline Phosphatase 112 U/L (45-117); BUN Blood Urea Nitrogen 8 mg/dL (7-18); Bicarbonate 22 mmol/L (21-32); Bilirubin Total 0.5 mg/dL (0.2-1.0); Ferritin 233.2 ng/mL (8-388); Folic Acid, (Folate) > 20.0 ng/mL (3.1-17.5); Glucose Level 91 mg/dL (74-106); HDL Cholesterol 46 mg/dL (40-60); LDL Cholesterol, Calculated 50 (<130); Magnesium 1.8 mg/dL (1.8-2.4); Phosphorus 3.4 mg/dL (2.5-4.9); Potassium 3.7 mmol/L (3.5-5.1); Protein, Total 6.6 g/dL (6.4-8.2); Sodium Level 132 mmol/L (136-145); Thyroid Stimulating Hormone 0.613 uIU/mL (0.360-3.740); Transferrin 218 mg/dL (200-360)
[2020-12-24] MEDS: INSULIN -REGULAR HUMAN 50 UNIT/0.5 ML ML SQ SCH ×4 (07:30→21:00)
[2020-12-24] MEDS ORDERED: MAGNESIUM SULFATE 1 gm IVPB 1 GM/100 ML BAG IV ONE (07:30)
[2020-12-24] MEDS ORDERED: CLOPIDOGREL 75 MG TABLET PO SCH (09:00)
[2020-12-24] MEDS ORDERED: ENOXAPARIN 40 MG/0.4 ML SQ SCH (09:00)
[2020-12-24] MEDS ORDERED: ASPIRIN EC 81 MG TAB PO SCH (09:00)
[2020-12-24] MEDS ORDERED: KCL 20 MEQ/100 mL IVPB 20 MEQ/100 ML BAG IV SCH (09:00)
[2020-12-24] MEDS: FOLIC ACID 1 MG TABLET PO SCH (09:00)
[2020-12-24] MEDS ORDERED: NA CHLORIDE 0.9% 500 ML ONE (09:49)
--- NOTE | 2020-12-24 17:37 | P.PN ---
Subjective Date of Service: 12/24/20 Patient feeling much better with no new complaints. Patient's clinical symptoms are improved. Review of Systems 10-point ROS is otherwise unremarkable Physical Examination - Vital Signs Temperature: 100.5 F Blood Pressure: 149/68 Pulse: 89 Respirations: 19 Pulse Ox (%): 97 - Physical Exam General: Alert, In no apparent distress, Oriented x3 Respiratory: Clear to auscultation bilaterally, Normal air movement Cardiovascular: Regular rate/rhythm, Normal S1 S2, No murmurs Gastrointestinal: Normal bowel sounds, Soft and benign, Non-distended, No tenderness Neurological: Sensation intact, Cranial nerves 3-12 intact, Abnormal strength - Studies Laboratory Data (last 24 hrs) 12/23/20 19:54: PT 12.9 H, INR 1.12, APTT 25.4 12/23/20 19:54: WBC 10.40, Hgb 10.5 L, Hct 30.6 L, Plt Count 188 12/23/20 19:54: Sodium 133 L, Potassium 4.2, BUN 11, Creatinine 0.56, Glucose 97, Total Bilirubin 0.6, AST 20, ALT 26, Alkaline Phosphatase 133 H Medications List Reviewed: Yes Assessment & Plan - Problems (Diagnosis) (1) Stroke Current Visit: Yes Status: Acute Qualifiers: CVA mechanism: unspecified Qualified Code(s): I63.9 - Cerebral infarction, unspecified (2) Generalized weakness Current Visit: No Status: Acute (3) Diabetes Current Visit: No Status: Chronic Qualifiers: Diabetes mellitus type: type 2 Diabetes mellitus intermediate insulin use: without director long term care use Diabetes mellitus complication status: without complication Qualified Code(s): E11.9 - Type 2 diabetes mellitus without complications (4) Hypertension Current Visit: No Status: Chronic Qualifiers: Hypertension type: essential hypertension Qualified Code(s): I10 - Essential (primary) hypertension - Plan PLAN: Continue with plan of care as mentioned below: 1. Physical therapy evaluation 2. Speech therapy evaluation 3. Anti-platelet therapy and statin therapy 4. Lipid profile in the morning 5. MRI of the brain/echocardiogram/carotid Doppler 6. Evaluate for home health/rehab 7. Neurology consultation 8. Permissive hypertension and gradual blood pressure control 9. Neuro checks every 4 hr 10. GI and DVT prophylaxis Discharge Plan: Home Plan to discharge in: Greater than 2 days - Advance Directives Does patient have a Living Will: Yes Does patient have a Durable POA for Healthcare: No - Code Status/Comfort Care Code Status Assessed: Yes Code Status: Full Code Critical Care: No Time Spent Managing PTS Care (In Minutes): 35
[2020-12-24] MEDS: ATORVASTATIN 40 MG TAB PO SCH (21:41)
[2020-12-25] MEDS: ACETAMINOPHEN 500 MG TAB PO PRN ×3 (02:11→22:24)
[2020-12-25 06:08] LABS: BUN Blood Urea Nitrogen 7 mg/dL (7-18); Bicarbonate 24 mmol/L (21-32); Glucose Level 105 mg/dL (74-106); Magnesium 2.1 mg/dL (1.8-2.4); Potassium 3.8 mmol/L (3.5-5.1); Sodium Level 129 mmol/L (136-145)
[2020-12-25] MEDS: INSULIN -REGULAR HUMAN 50 UNIT/0.5 ML ML SQ SCH ×4 (07:30→21:00)
--- NOTE | 2020-12-25 08:30 | RAD REPORT ---
EXAM DESCRIPTION: MRI - MRA Neck W/Wo Cont - 12/25/2020 8:05 am CLINICAL HISTORY: CVA COMPARISON: None. TECHNIQUE: Magnetic resonance angiogram of the neck was performed. 18 cc MultiHance was administered intravenously. 3D MIPS reconstruction performed FINDINGS: Mild plaque is present within the common carotid, internal carotid and external carotid ar teries. No aneurysm The left vertebral artery is more dominant than the right. No significant abnormality. IMPRESSION: Mild plaque within the carotid arteries without visualization of a significant abnormali ty NASCET criteria used. Mild 0-49% stenosis Moderate 50-69% stenosis Severe 70-99% stenosis
--- NOTE | 2020-12-25 08:31 | P.PN ---
Subjective Date of Service: 12/25/20 Primary Care Provider: Domingo Chief Complaint: stroke Subjective: Other (Patient recently hospitalized for hyponatremia. Initial CT head showed likely ischemic stroke. MRI this morning showed hemorrhagic stroke to the left occipital region with no midline shift. Patient reports headache.) Physical Examination - Vital Signs Temperature: 97.7 F Blood Pressure: 143/74 Pulse: 84 Respirations: 19 Pulse Ox (%): 97 - Studies Medications List Reviewed: Yes Assessment & Plan Discharge Plan: Other (Inpatient rehab) Plan to discharge in: 48 Hours Physician Review Additional Text: Physical Exam: GENERAL: Patient reports headache. VITAL SIGNS: Reviewed HEENT: Patient reports some peripheral vision loss. NECK: Supple. No carotid bruits. No lymphadenopathy or thyromegaly. LUNGS: Clear to auscultation. No crackles or wheezes are heard. HEART: Regular rate and rhythm, no appreciable gallops, rubs, murmurs or extra heart sounds ABDOMEN: Soft, nontender, and nondistended. Positive bowel sounds. No hepatosplenomegaly was noted. EXTREMITIES: Without any cyanosis, clubbing, rash, lesions or peripheral edema. NEUROLOGIC: Patient oriented to person time and place. No difficulty with strength. Patient able to converse appropriately. No evidence of aphasia. SKIN: Normal color, turgor and temperature. No ulcerations or rashes noted. Impression: Dysarthria, Headaches with peripheral vision loss secondary to 3.5 cm inferior left occipital lobe hemorrhagic CVA Hypertension Diabetes mellitus type 2 Hyperlipidemia Hyponatremia Plan: Dysarthria, Headaches with peripheral vision loss secondary to 3.5 cm inferior left occipital lobe hemorrhagic CVA: Spoke with neurology concerning findings of MRI. Spoke with radiology. No midline shift noted. 3.5 cm inferior left occipital lobe hemorrhagic CVA noted. Neurology recommends to discontinue aspirin, Plavix and Lovenox. Will provide SCD for DVT prophylaxis. Will need to monitor the patient closely. Recheck CT scan in 12 hours to monitor for further hemorrhagic conversion. Maintain blood pressure less than 140 systolic. Restart metoprolol but at half dose twice daily. We will continue to monitor the patient closely. Physical therapy to evaluate and assess. We will consult nephrology to address hyponatremia. IV fluids initiated. We will continue to monitor the patient closely. Case discussed with patient and daughter. Hypertension: Restart metoprolol at 12.5 mg 1 pill twice daily. Maintain blood pressure less than 140 systolic. Diabetes mellitus type 2: Recent A1c 5.8. Insulin sliding scale in place. Hyperlipidemia: Continue statin medication. Hyponatremia: Will start IV NS. Nephrology consulted. Code Status: Full Code DVT prophylaxis: SCD Advanced Care Planning-30 minutes: Will address with patient. Physical therapy and Occupational Therapy to evaluate. Consider inpatient rehab. Time Spent Managing Pts Care (In Minutes): 55
--- NOTE | 2020-12-25 08:32 | RAD REPORT ---
EXAM DESCRIPTION: MRI - MRA Head Wo Cont - 12/25/2020 8:06 am CLINICAL HISTORY: CVA COMPARISON: None. TECHNIQUE: Magnetic resonance angiogram was performed. 3D MIPS reconstruction performed FINDINGS: The anterior cerebral, middle cerebral, posterior cerebral, distal internal carotid and ba silar arteries do not demonstrate a significant stenosis. An aneurysm is not displayed. IMPRESSION: Unremarkable MRA brain.
--- NOTE | 2020-12-25 08:34 | RAD REPORT ---
EXAM DESCRIPTION: MRI - Brain W/Wo Cont - 12/25/2020 8:06 am CLINICAL HISTORY: CVA COMPARISON: head CT December 24, 2019 TECHNIQUE: Axial, sagittal, and coronal magnetic images of the brain were obtained. 20 cc MultiHance administered intravenously FINDINGS: T1 weighted sequences and demonstrate mildly increased signal within the left occipital lo be. Most of this has diminished signal on T2 weighted sequences. There is surrounding edema. The area measures approximately 4 centimeters. Mild enhancement is present Some compression along the occipital horn left lateral ventricle. No shift of the midline structures. An extra-axial fluid collection is not noted. Fluid within the sinuses/mastoids is not seen IMPRESSION: These findings probably indicate a left occipital lobe infarction with some hemorrhage. An unusual appearing area of neoplasm/inflammation is considered less likely. Follow-up unenhanced he ad CT recommended. Examination was discussed with Dr. Briggs
[2020-12-25] MEDS ORDERED: HYDROCODONE/APAP 7.5/325 MG TAB PO PRN (08:52)
[2020-12-25] MEDS ORDERED: POTASSIUM CL SA 10 MEQ TAB PO ONE (09:00)
[2020-12-25] MEDS: MAGNESIUM OXIDE 400 MG TAB PO SCH (09:00)
[2020-12-25] MEDS: NA CHLORIDE 0.9% 1,000 ML IV SCH (09:50)
[2020-12-25] MEDS: METOPROLOL XL 25 MG TAB PO SCH ×2 (09:51→22:24)
[2020-12-25] MEDS: VITAMIN D 1000 UNIT TAB PO SCH (09:51)
[2020-12-25] MEDS: DOCOSAHEXANOIC AC/EPA 1000 MG PO SCH (09:51)
[2020-12-25] MEDS: FOLIC ACID 1 MG TABLET PO SCH (09:51)
--- NOTE | 2020-12-25 12:13 | CON ---
History Of Present Illness: The patient is seen in room 224. The patient seems to be a pleasant fem hoang, around age of 70, who presented to the hospital with question of stroke. The patient has had in itial CAT scan done with question of likely ischemic stroke. MRI on December 25 shows a question of hemor rhagic stroke in the occipital region with no shift in midline. The patient is still alert, but she clearly seems to have some aphasia, more so expressive aphasia where she has mixing of thoughts and u nable to communicate with proper cogent answers. Son and her father are in the room. Also daughter, Destinee was on the phone. Discussed mother's situation with them and they explained that the patie nt was actually doing reasonably well and this is not her baseline. The patient is not eating and dr inking that well. Her skin is dry. She has no swelling in the legs. Her breathing is comfortable a nd she does not seem to have any crackles or difficulty with breathing on exam or on lung exam. She seems to be stable on her vitals. Her past medical history is consistent for question of diabetes. She is on metformin 1000 mg p.o. b.i.d. She has been on losartan and metoprolol in the past. Losart an may have been recently discontinued, but she was taking some metoprolol. She has had some history of high blood pressure, but according to the son that has not been usually a problem with her blood pressure being reasonable at home. She has had HbA1c done and the recent one was 5.8. She is good o n her glucose right now between 100 to 129 sugars. Physical Examination: Vital Signs: On evaluation of her vitals, the patient's vitals were stable with blood pressure 143/7 4, pulse about 80 and regular, respirations around 14 and comfortable, O2 sats are 94% to 97% on room air. Lungs: Clear to auscultation. Abdomen: Soft. Extremities: Revealed no edema. The patient is able to move all 4 extremities with both arms. She can lift them up. She can push back with them. Strength seems to be reasonable. The patient is abl e to move her legs up as well. Neurologic: The patient does clearly have expressive aphasia, unable to communicate or answer questi ons appropriately. She loses a chain of thought very quickly, stops to find words and then clearly i s having difficulty with her speech currently. Laboratory Data: Reviewed. The patient's labs from yesterday show hemoglobin 9.5, hematocrit 28, pl atelet count of 179, WBC of 9.1. Her sodium earlier this morning was 129, potassium 3.8, chloride 95 , bicarb is 24, BUN is 7, creatinine is 0.39. Her glucose has gone from 95 to 129 with the lab work showing 129 sodium on the glucose of 129 and 95 glucose was when her sodium level was about 132. The patient is currently on normal saline at 50 mL an hour. She states that she has had breakfast th is morning and was able to tolerate some p.o. intake. I am not sure if she is eating or drinking. T he patient did drink some apple juice and water this morning and then did have some breakfast this mo rning as per the patient also. We are consulted for hyponatremia evaluation. Assessment And Plan: The patient with hyponatremia, occipital stroke, expressive aphasia. At this p oint, the patient is being managed with appropriate blood pressure control and blood pressure in 140 range. She is on minimal medication with metoprolol 12.5 b.i.d. Her pulse rate seems to be reasonab le. No need for starting any p.o. medications for diabetes right now as her HbA1c has been pretty go od recently and her glucose is in low 100 range currently. I encouraged p.o. intake with aspiration precautions. At this point, the patient does seem to be volume depleted. I will repeat another basi c metabolic panel to assess her sodium to confirm that there was not a significant drop; however, the sodium has been around 130 for the most part, last reading was 129. It has been as high as 133 to 1 32 and then 129 now. The patient does seem to be volume depleted. On physical examination, her skin is dry. She has no edema. Her lungs are clear and she is breathing comfortably. Her blood pressur e is reasonable. At this point, we will continue on 50 mL of normal saline as it is currently ordere d. We will repeat her basic metabolic panel this evening and then again tomorrow morning to continue monitor her sodium status. Her change in sodium could partially be secondary to the stroke, also du e to her volume depletion and not being able to take much osmoles. She starts eating, which she is a lready doing now and has a balanced diet. This should improve also with gentle volume repletion. I do not identify any medications that the patient is taking. She does not seem to have hydrochlorothi azide, gabapentin, other medications that may have caused hyponatremia. Her medications are metoprol ol and metformin that she was taking and the losartan less likely to do this. Appreciate your consul tation. We will follow this patient with you. Continue normal saline at 50 mL an hour. Check basic metabolic panel at 4 p.m. /ELIN Voice ID: [id number] Report ID: [id number]
[2020-12-25] MEDS ORDERED: DICLOFENAC SOD D.R. 75 MG TAB PO PRN (14:26)
--- NOTE | 2020-12-25 14:45 | RAD REPORT ---
EXAM DESCRIPTION: CT - Head Brain Wo Cont - 12/25/2020 2:31 pm CLINICAL HISTORY: Hemorrhagic stroke Headache, drowsiness COMPARISON: Head angio dated 12/23/2020; Ct Stroke Brain Wo Cont dated 12/23/2020 TECHNIQUE: All CT scans are performed using dose optimization technique as appropriate and may inclu de automated exposure control or mA/KV adjustment according to patient size. FINDINGS: 4.2 x 2.1 cm intercerebral hematoma has developed in the left occipital lobe at the site s uspected CVA.There is mild surrounding brain edema. Mild pjir-ja-olpuq midline shift of 5 mm is noted . The paranasal sinuses and mastoids are clear. The calvarium is intact. IMPRESSION: 4.2 x 2.1 cm intercerebral hematoma has developed in the left occipital lobe. This is li lisa related to underlying CVA. Subtle mryj-cz-lgrvt midline shift of 5 mm noted.
[2020-12-25 15:41] LABS: BUN Blood Urea Nitrogen 8 mg/dL (7-18); Bicarbonate 23 mmol/L (21-32); Glucose Level 111 mg/dL (74-106); Potassium 4.2 mmol/L (3.5-5.1); Sodium Level 126 mmol/L (136-145)
[2020-12-25] MEDS: TRAMADOL HCL 50 MG TAB PO PRN (17:03)
[2020-12-25] MEDS: TOPIRAMATE 25 MG TAB PO SCH (21:00)
--- NOTE | 2020-12-25 21:03 | CON ---
Reason For Consultation: Consultation called because of ischemic stroke with hemorrhagic transformat ion. History Of Present Illness: Ms. Moe is a 70-year-old right-handed patient with hyperten steve and insulin-dependent diabetes mellitus, who comes to [facility] after sudden onset vis ual disturbance with loss of vision and difficulty expressing herself. The event occurred on December, around 2 p.m. She was apparently reading and then suddenly had appearance of flashing lights in t he eyes and then could not see with decreased vision in the right side. She came to [facility] 5 hours later, that is around 7:13 when onset of symptoms were too. At that point, she was out o f any window for tissue plasminogen activator. Her head CT scan done at 7:47 showed a subtle area of diminished density in the left occipital lobe, could be related to ischemia. There was no evidence of hemorrhagic transformations at that time. Her additional workup included a brain MRI actually on the , that study identified a 4 cm area of hemorrhagic conversion in the left occipital lobe with some mild midline shift and another study, which is a CT scan done earlier today also confirmed that the area is 4.2 x 2.1 cm with intercerebral hematoma, which developed in the area with some 5 mm of l vno-xn-leelx shift. The patient's clinical symptoms not worsened significantly. She does have a rig ht homonymous hemianopsia and expressive aphasia, which is stable. Magnetic resonance angiogram of h ead and neck showed no significant occlusion. Laboratory studies show slightly low hemoglobin of 9.5 with normal platelets of 179. Coagulation, INR 1.12. Blood work showed slightly low sodium of 126, potassium 4.2, chloride 95, creatinine 0.38, blood glucose ranged from 105 to 115, calcium normal at 8.6, magnesium normal at 2.1. Liver function studies normal. LDL cholesterol 50, HDL 46. B12 mild ly low therapeutic at 315. Thyroid stimulating hormone level is normal. Urinalysis revealed 3+ keto binta, otherwise negative. COVID-19 was negative. Since hospitalization, as indicated, her deficits h ave not changed significantly. Allergies: CODEINE AND MORPHINE. Medications: Metformin, metoprolol, vitamin D, magnesium oxide, fish oral, aspirin. Past Surgical History: Cholecystectomy. Social History: No alcohol, tobacco, or IV drug use. Family History: Not contributory. Review of Systems: She denies recent fevers, chills, nausea, vomiting, any myalgias, arthralgias, rash. She does have a headache and she has a history of migraine headaches involving the right frontal region with light s ensitivity. Physical Examination: Vital Signs: Blood pressure 135/69, pulse 57, respiratory rate 16, temperature 99.6, oxygen saturati on 96% on room air. Weight 169 pounds, height 5 feet 2 inches. General: Ms. Moe is resting in bed. She is in mild to moderate distress due to headache. HEENT: She is otherwise normocephalic, atraumatic. Sclerae anicteric. Oropharynx is moist and pink . Neck: Supple. Chest: Clear. Heart: Regular. Extremities: No significant edema, cyanosis, or clubbing. Neurological: She is alert and oriented to situation, place, person, as the eyes mostly closed becau se of significant pain related to light sensitivity and headache. Her cranial nerve examination show ed no focal deficits except for a right homonymous hemianopsia. She now has improved expressive expr ession and comprehension with no obvious aphasia at this point. Motor examination intact in the uppe r and lower extremities, 5/5 strength proximally and distally. Sensory exam intact with a mild stock ing-glove loss to light touch and temperature. Reflexes are 1+ at the biceps, triceps, patella, 0 at the heels. Coordination is intact except for some difficulty finding objects in the right visual fi eld. Her gait, she has good stance and stride, ambulate with a walker. Assessment: Ms. Moe is a 70-year-old patient with likely an ischemic stroke with hemorrhagic conv ersion. She is now off aspirin and Plavix along with aspirin. She has DVT prophylaxis with SCDs. S he does have some midline shift left to right of 5 mm. She will have repeat CT scan tomorrow and we did make a determination at that point if further intervention is needed. Currently, the patient is doing well with physical therapy. She will likely require glasses with prisms to eventually help her to see things in the right visual field. Otherwise, we will continue aggressive management of hyper tension, keep systolic blood pressure less than 140, and aggressive management of blood sugars, which is actually controlled. She will be evaluated as to the degree of physical therapy that may be appropriate, either inpatient and actually she is doing well and may require outpatient physical therapies with inpatient and that is probably better than home health as well. RAFAELA Voice ID: [id number] Report ID: [id number]
[2020-12-25] MEDS: ATORVASTATIN 40 MG TAB PO SCH (22:24)
[2020-12-26] MEDS: TRAMADOL HCL 50 MG TAB PO PRN (04:36)
[2020-12-26 05:00] LABS: Absolute Lymphocytes (CBC) 1.1 K/uL (0.7-4.9); Basophils % 0.1 % (0-1.3); Hematocrit 26.1 % (36.0-45.0); MPV 6.8 fL (7.6-11.3); RBC Red Blood Cell Count 3.06 M/uL (3.86-4.86)
[2020-12-26] MEDS: NA CHLORIDE 0.9% 1,000 ML IV SCH (05:00)
[2020-12-26 05:09] LABS: BUN Blood Urea Nitrogen 10 mg/dL (7-18); Bicarbonate 21 mmol/L (21-32); Glucose Level 106 mg/dL (74-106); Potassium 3.8 mmol/L (3.5-5.1); Sodium Level 127 mmol/L (136-145)
[2020-12-26] MEDS: INSULIN -REGULAR HUMAN 50 UNIT/0.5 ML ML SQ SCH ×2 (07:30→11:30)
--- NOTE | 2020-12-26 08:12 | ECHO ---
HEIGHT: 5 ft 2 in WEIGHT: 169 lb 3.2 oz DATE OF STUDY: 12/25/[address]: Brayden Mae 2-DIMENSIONAL: YES M.MODE: YES DOPPLER: YES COLOR FLOW: YES TDS: NO PORTABLE: NO DEFINITY: NO BUBBLE STUDY: NO DIAGNOSIS: STROKE CARDIAC HISTORY: CATHERIZATION: SURGERY: PROSTHETIC VALVE: PACEMAKER: MEASUREMENTS (cm) DIASTOLIC (NORMALS) SYSTOLIC (NORMALS) IVSd 0.9 (0.6-1.2) LA Diam 2.9 (1.9-4.0) LVEF 55-60% LVIDd 4.8 (3.5-5.7) LVIDs 2.4 (2.0-3.5) %FS 51% LVPWd 1.1 (0.6-1.2) Ao Diam 2.7 (2.0-3.7) 2 DIMENSIONAL ASSESSMENT: RIGHT ATRIUM: NORMAL LEFT ATRIUM: NORMAL RIGHT VENTRICLE: NORMAL LEFT VENTRICLE: NORMAL TRICUSPID VALVE: MILD TRICUSPID REGURGITATION MITRAL VALVE: MILD TO MODERATE MITRAL REGURGITATION PULMONIC VALVE: NORMAL AORTIC VALVE: NORMAL PERICARDIAL EFFUSION: NONE AORTIC ROOT: NORMAL LEFT VENTRICULAR WALL MOTION: NORMAL. DOPPLER/COLOR FLOW: SEE BELOW. COMMENTS: NORMAL LEFT VENTRICULAR EJECTION FRACTION 55-60% WITH NORMAL WALL MOTION.L MODERATE MITRAL REGURGITATION. MILD TIRCUSPID REGURGITATION. TECHNOLOGIST: MELISSA MEDRANO
[2020-12-26] MEDS: METOPROLOL XL 25 MG TAB PO SCH ×2 (09:00→10:59)
[2020-12-26] MEDS: TOPIRAMATE 25 MG TAB PO SCH ×2 (09:00)
[2020-12-26] MEDS ORDERED: POTASSIUM CL SA 10 MEQ TAB PO ONE (09:00)
[2020-12-26] MEDS: DOCOSAHEXANOIC AC/EPA 1000 MG PO SCH ×2 (09:00→10:59)
[2020-12-26] MEDS: CYANOCOBALAMIN 1,000 MCG TAB PO SCH ×2 (09:00→11:00)
[2020-12-26] MEDS: VITAMIN D 1000 UNIT TAB PO SCH ×2 (09:00→10:59)
[2020-12-26] MEDS: FOLIC ACID 1 MG TABLET PO SCH ×2 (09:00→10:59)
[2020-12-26] MEDS: MAGNESIUM OXIDE 400 MG TAB PO SCH ×2 (09:00)
[2020-12-26] MEDS ORDERED: AMLODIPINE 2.5 MG TAB PO ONE (09:45)
--- NOTE | 2020-12-26 10:26 | P.PN ---
Subjective Date of Service: 12/26/20 Primary Care Provider: Domingo Chief Complaint: stroke Subjective: Other ( Patient with increased somnolence now. Patient had expressive aphasia earlier today. Family at bedside.) Physical Examination - Vital Signs Temperature: 98.9 F Blood Pressure: 150/85 Pulse: 80 Respirations: 19 Pulse Ox (%): 96 - Studies Medications List Reviewed: Yes Assessment & Plan Discharge Plan: Transfer Plan to discharge in: Unknown Physician Review Additional Text: CT Head: EXAM DESCRIPTION: CT - Ct Stroke Brain Wo Cont - 12/23/2020 7:47 pm CLINICAL HISTORY: WEAKNESS Headache, drowsiness COMPARISON: Head Brain Wo Cont dated 11/10/2020; Brain Wo Cont dated 11/10/2020 TECHNIQUE: All CT scans are performed using dose optimization technique as appropriate and may include automated exposure control or mA/KV adjustment according to patient size. FINDINGS: No intracranial hemorrhage, hydrocephalus or extra-axial fluid collection.Subtle area of diminished density measuring 2-3 cm in the left occipital lobe could be related to ischemia. The paranasal sinuses and mastoids are clear. The calvarium is intact. IMPRESSION: Subtle area of diminished density in the left occipital lobe could be related to ischemia. No acute hemorrhage or midline shift. MRI Brain: EXAM DESCRIPTION: MRI - Brain W/Wo Cont - 12/25/2020 8:06 am CLINICAL HISTORY: CVA COMPARISON: head CT December 24, 2019 TECHNIQUE: Axial, sagittal, and coronal magnetic images of the brain were obtained. 20 cc MultiHance administered intravenously FINDINGS: T1 weighted sequences and demonstrate mildly increased signal within the left occipital lobe. Most of this has diminished signal on T2 weighted se quences. There is surrounding edema. The area measures approximately 4 centimeters. Mild enhancement is present Some compression along the occipital horn left lateral ventricle. No shift of the midline structures. An extra-axial fluid collection is not noted. Fluid within the sinuses/mastoids is not seen IMPRESSION: These findings probably indicate a left occipital lobe infarction with some hemorrhage. An unusual appearing area of neoplasm/inflammation is considered less likely. Follow-up unenhanced head CT recommended. Follow up CT Head: EXAM DESCRIPTION: CT - Head Brain Wo Cont - 12/25/2020 2:31 pm CLINICAL HISTORY: Hemorrhagic stroke Headache, drowsiness COMPARISON: Head angio dated 12/23/2020; Ct Stroke Brain Wo Cont dated 12/23/2020 TECHNIQUE: All CT scans are performed using dose optimization technique as appropriate and may include automated exposure control or mA/KV adjustment according to patient size. FINDINGS: 4.2 x 2.1 cm intercerebral hematoma has developed in the left occipital lobe at the site suspected CVA.There is mild surrounding brain edema. Mild jqwa-jx-xvrje midline shift of 5 mm is noted. The paranasal sinuses and mastoids are clear. The calvarium is intact. IMPRESSION: 4.2 x 2.1 cm intercerebral hematoma has developed in the left occipital lobe. This is likely related to underlying CVA. Subtle lxbe-rz-pjdol midline shift of [address] Head: Spoke with radiology. Intercerebral hematoma still identified. No significant change since yesterday. 4 mm midline shift noted. Physical Exam: GENERAL: Patient had expressive aphasia this morning. Increased somnolence noted at this time. Family at bedside. VITAL SIGNS: Reviewed HEENT: Neck supple NECK: Supple. No carotid bruits. No lymphadenopathy or thyromegaly. LUNGS: Clear to auscultation. No crackles or wheezes are heard. HEART: Regular rate and rhythm, no appreciable gallops, rubs, murmurs or extra heart sounds ABDOMEN: Soft, nontender, and nondistended. Positive bowel sounds. No hepatosplenomegaly was noted. EXTREMITIES: Without any cyanosis, clubbing, rash, lesions or peripheral edema. NEUROLOGIC: Patient with expressive aphasia SKIN: Normal color, turgor and temperature. No ulcerations or rashes noted. Impression: Expressive aphasia, Headaches with peripheral vision loss secondary to 4.2 x 2.1 cm intracerebral left occipital lobe hemorrhagic CVA Hyponatremia suspect cerebellar salt wasting Hypertension uncontrolled Diabetes mellitus type 2 Hyperlipidemia Anemia of chronic disease with B12 deficiency Fever likely cerebellar related Plan: Expressive aphasia, Headaches with peripheral vision loss secondary to 4.2 x 2.1 cm intracerebral left occipital lobe hemorrhagic CVA: Patient had expressive aphasia this morning. Increased somnolence noted now. Repeat CT scan shows no significant change in hemorrhagic CVA. Midline shift around 4 mm. Patient more somnolent now. Family desires patient to be at high level center. Case discussed with radiology, nephrology, and neurology. All in agreement that patient needs to be transferred to high-level center to neuro ICU for close monitoring of electrolytes, blood pressure and status of hemorrhagic CVA. Need to consider further evaluation by neurosurgery. Likely no need for intervention at this time unless further decline is noted. For now we will transfer patient to ICU for close monitoring. Nephrology added Norvasc for better blood pressure control. Salt tablets added. Adjustments to IV fluids made. We will continue to monitor patient closely. Await acceptance to transfer for higher level care treatment. Hyponatremia suspect cerebellar salt wasting: IV fluids adjusted by nephrology. Currently on normal saline at 50 cc/h. Salt tabletsodium chloride 1 g twice daily added. Need to monitor electrolytes closely especially in light of hemorrhagic CVA. Nephrology recommends transfer for higher level of care Hypertension uncontrolled: Metoprolol was increased to 25 mg 1 pill twice daily. Norvasc 2.5 mg daily added for better blood pressure control. Maintain blood pressure less than 140 systolic. Diabetes mellitus type 2: Recent A1c 5.8. Insulin sliding scale in place. Hyperlipidemia: Continue statin medicationLipitor 40 mg daily. Anemia of chronic disease with B12 deficiency: We will monitor hemoglobin. Continue B12 supplementation. Fever likely cerebellar related: White count within normal range. Procalcitonin pending. Urinalysis negative. Will check chest x-ray. Fever likely related to hemorrhagic CVA. Blood cultures obtained. Code Status: Full Code DVT prophylaxis: SCD Advanced Care Planning-30 minutes: All in agreement for transfer to high-level care center for further evaluation. During this time, Will transfer to ICU for close monitoring.. Time Spent Managing Pts Care (In Minutes): 55
[2020-12-26 10:35] LABS: ALT/SGPT 30 U/L (12-78); AST/SGOT 29 U/L (15-37); Albumin 2.4 g/dL (3.4-5.0); Alkaline Phosphatase 125 U/L (45-117); BUN Blood Urea Nitrogen 10 mg/dL (7-18); Bicarbonate 22 mmol/L (21-32); Glucose Level 102 mg/dL (74-106); Protein, Total 6.9 g/dL (6.4-8.2); Sodium Level 125 mmol/L (136-145)
--- NOTE | 2020-12-26 11:11 | PN ---
Subjective: The patient is seen in room 224. The patient is more somnolent. She does wake up to ar ousal, but is not able to give comprehensive answers. She does talk quite clearly, but seems to have an expressive aphasia where she is looking for words and is unable to speak comfortably or answer qu estions appropriately. She does not seem to have any discomfort currently. Her family members are i n the room. Discussed the patient's condition with the family. She has 2 daughters, a son and her h usband in the room currently. The patient looks comfortable, does not seem to have any discomfort cu rrently. Does not seem to be in pain. She is sleeping, but easily arousable and able to answer some questions, but not making sense for the most part. She seems to be having expressive aphasia. Objective: Vital Signs: Reviewed. The patient's vital signs show last blood pressure of 150/85, be fore that 164/75, pulse is about 80 and regular, respirations around 14, O2 sats are 96%, temperature 98.9. Lungs: Clear to auscultation. Abdomen: Soft. Extremities: Revealed trace to no edema. Skin: Dry. Mouth is dry. The patient has not been taking any p.o. intake for the most part. She has been able to swallow her pills when she is assisted, but she is not eating and drinking much. Laboratory Data: Reviewed. Her labs from this morning show sodium is stable 126 yesterday and 127 t christine, potassium 3.8, chloride 94, bicarb is 21, BUN is 10, creatinine is 0.37. Multitude of urine st udies are still pending including urine osmolality, urine urea, urine sodium studies. The patient do es have a specific gravity greater than 1.030, no evidence of infection in the urine. Hematology jarod ws WBC count of 10.6, hemoglobin 9.1, hematocrit 26.1, platelet count of 160. Also, the patient has had a CT scan done that shows question of occipital bleed with some slight midline shift. Assessment And Plan: The patient with stroke, question of hemorrhage with some midline shift. [place] looks like she has more aphasia today. Still able to take p.o. intake. We will go ahead and m onitor her blood pressures closely. Spoke with neurologist. Also, the goal is to keep her blood pre ssure systolic close to 140 range, she is currently around 150s. We will start a very low dose of am lodipine and monitor. If not able to take p.o. intake, we can consider using hydralazine in the futu re, but would need to do it judiciously as we will not want the blood pressure to be fluctuating too much, but staying around 140 range. She is on IVF right now at 50 mL an hour of normal saline, I wou ld continue that. I will start her on amlodipine 2.5 mg. We would start her on salt tablets 1 g b.i .d. There is a strong suspicion on my part that the patient may have some cerebral salt wasting. I am still waiting on the urine lytes; however, the patient does not look volume overloaded. She has n ot been eating and drinking. Her sodium has not dropped with normal saline; was 126 yesterday, it is 127 now. She has dry mucosa and her extremities are also not revealing any significant edema. At t his point, we will continue normal saline, add the salt tablets, add the low dose amlodipine. Also t here was some discussion about transferring the patient out to a higher level of care where a neurosu rgeon may be on standby, and blood pressures and her vitals can be more closely monitored and if surg ical intervention was needed, that would be available. I have discussed the case with Dr. Feroz gu and also with the neurologist, Dr. Collier and they will be discussing further with the family t o see if they would be interested in transfer. /ELIN Voice ID: [id number] Report ID: [id number]
--- NOTE | 2020-12-26 11:46 | RAD REPORT ---
EXAM DESCRIPTION: RAD - Chest Single View - 12/26/2020 11:39 am CLINICAL HISTORY: fever COMPARISON: Portable December 23 TECHNIQUE: AP portable chest image was obtained 12/26/2020 11:39 noonan supine positioning . FINDINGS: Lung volumes are substantially lower than the prior study accentuating central vasculature and lung parenchymal interstitial pattern. No mass or consolidations seen. Heart size is normal. A m ild failure, volume overload or interstitial pneumonia could be obscured in this setting. Mediastinum is accentuated by the low lung volumes. No measurable pleural effusion and no pneumothorax. No acute bony abnormality seen. No acute aortic findings suspected. IMPRESSION: Exam is limited by low lung volumes and supine positioning. No focal abnormality to suspect bacterial pneumonia. Viral infiltrate or mild interstitial edema can be masked in this setting.
[2020-12-26 11:58] VITALS: O2SAT 96
--- NOTE | 2020-12-26 12:15 | P.DS ---
Admission Date: 12/23/20 Discharge Date: 12/26/20 Primary Care Provider: Lucretia Lane NP Disposition: TRANSFER TO [facility] Discharge Condition: FAIR Reason for Admission: stroke Consultations: Nephrology-Dr. Crandall Neurology-Dr. Collier Procedures: COVID: Negative ECHO: MEASUREMENTS (cm) DIASTOLIC (NORMALS) SYSTOLIC (NORMALS) IVSd 0.9 (0.6-1.2) LA Diam 2.9 (1.9-4.0) LVEF 55-60% LVIDd 4.8 (3.5-5.7) LVIDs 2.4 (2.0-3.5) %FS 51% LVPWd 1.1 (0.6-1.2) Ao Diam 2.7 (2.0-3.7) 2 DIMENSIONAL ASSESSMENT: RIGHT ATRIUM: NORMAL LEFT ATRIUM: NORMAL RIGHT VENTRICLE: NORMAL LEFT VENTRICLE: NORMAL TRICUSPID VALVE: MILD TRICUSPID REGURGITATION MITRAL VALVE: MILD TO MODERATE MITRAL REGURGITATION PULMONIC VALVE: NORMAL AORTIC VALVE: NORMAL PERICARDIAL EFFUSION: NONE AORTIC ROOT: NORMAL LEFT VENTRICULAR WALL MOTION: NORMAL. DOPPLER/COLOR FLOW: SEE BELOW. COMMENTS: NORMAL LEFT VENTRICULAR EJECTION FRACTION 55-60% WITH NORMAL WALL MOTION.L MODERATE MITRAL REGURGITATION. MILD TIRCUSPID REGURGITATION. CT Head: EXAM DESCRIPTION: CT - Ct Stroke Brain Wo Cont - 12/23/2020 7:47 pm CLINICAL HISTORY: WEAKNESS Headache, drowsiness COMPARISON: Head Brain Wo Cont dated 11/10/2020; Brain Wo Cont dated 11/10/2020 TECHNIQUE: All CT scans are performed using dose optimization technique as appropriate and may include automated exposure control or mA/KV adjustment according to patient size. FINDINGS: No intracranial hemorrhage, hydrocephalus or extra-axial fluid collection.Subtle area of diminished density measuring 2-3 cm in the left occipital lobe could be related to ischemia. The paranasal sinuses and mastoids are clear. The calvarium is intact. IMPRESSION: Subtle area of diminished density in the left occipital lobe could be related to ischemia. No acute hemorrhage or midline shift. CTA Brain: FINDINGS: No evidence of aneurysm is detected. No flow-limiting stenosis or vascular malformation identified. Antegrade flow is seen in the vertebral arteries. The left vertebral artery is dominant. The visualized dural venous sinuses are patent. IMPRESSION: No significant flow abnormality is detected. MRI Brain: EXAM DESCRIPTION: MRI - Brain W/Wo Cont - 12/25/2020 8:06 am CLINICAL HISTORY: CVA COMPARISON: head CT December 24, 2019 TECHNIQUE: Axial, sagittal, and coronal magnetic images of the brain were obtained. 20 cc MultiHance administered intravenously FINDINGS: T1 weighted sequences and demonstrate mildly increased signal within the left occipital lobe. Most of this has diminished signal on T2 weighted sequences. There is surrounding edema. The area measures approximately 4 centimeters. Mild enhancement is present Some compression along the occipital horn left lateral ventricle. No shift of the midline structures. An extra-axial fluid collection is not noted. Fluid within the sinuses/mastoids is not seen IMPRESSION: These findings probably indicate a left occipital lobe infarction with some hemorrhage. An unusual appearing area of neoplasm/inflammation is considered less likely. Follow-up unenhanced head CT recommended. Follow up CT Head: EXAM DESCRIPTION: CT - Head Brain Wo Cont - 12/25/2020 2:31 pm CLINICAL HISTORY: Hemorrhagic stroke Headache, drowsiness COMPARISON: Head angio dated 12/23/2020; Ct Stroke Brain Wo Cont dated 12/23/2020 TECHNIQUE: All CT scans are performed using dose optimization technique as appropriate and may include automated exposure control or mA/KV adjustment according to patient size. FINDINGS: 4.2 x 2.1 cm intercerebral hematoma has developed in the left occipital lobe at the site suspected CVA.There is mild surrounding brain edema. Mild [id number] midline shift of 5 mm is noted. The paranasal sinuses and mastoids are clear. The calvarium is intact. IMPRESSION: 4.2 x 2.1 cm intercerebral hematoma has developed in the left occipital lobe. This is likely related to underlying CVA. Subtle [id number] midline shift of [address] up [address] Head: Spoke with radiology. Intercerebral hematoma still identified. No significant change since yesterday. 4 mm midline shift noted. Physical Exam: GENERAL: Patient had expressive aphasia this morning. Increased somnolence noted at this time. Family at bedside. VITAL SIGNS: Reviewed HEENT: Neck supple NECK: Supple. No carotid bruits. No lymphadenopathy or thyromegaly. LUNGS: Clear to auscultation. No crackles or wheezes are heard. HEART: Regular rate and rhythm, no appreciable gallops, rubs, murmurs or extra h eart sounds ABDOMEN: Soft, nontender, and nondistended. Positive bowel sounds. No hepatosplenomegaly was noted. EXTREMITIES: Without any cyanosis, clubbing, rash, lesions or peripheral edema. NEUROLOGIC: Patient with expressive aphasia SKIN: Normal color, turgor and temperature. No ulcerations or rashes noted. 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 The event occurred on December 23, around 2 p.m. She was apparently reading and then suddenly had appearance of flashing lights in the eyes and then could not see with decreased vision in the right side. She came to [facility] 5 hours later, that is around 7:13 when onset of symptoms were too. At that point, she was out of any window for tissue plasminogen activator. Her head CT scan done at 7:47 showed a subtle area of diminished density in the left occipital lobe, could be related to ischemia. Patient was admitted for further evaluation and treatment. Hospital Course: Patient presented with Expressive aphasia, Headaches with peripheral vision loss. Initial CT scan showed possible ischemia to the left occipital region. Patient continue to have expressive aphasia with headache. MRI subsequently showed a 4.2 x 2.1 cm intracerebral left occipital lobe hemorrhagic CVA. Patient was stabilize. Repeat CT scan that day showed no progression of hemorrhagic stroke. Midline shift around 4-5 mm was noted. Follow up CT scan this morning showed no significant change in hemorrhagic stroke. Midline shift was around 4 mm. Patient continue to have increasing expressive aphasia with increased somnolence. Patient also had some hyponatremia thought to be related to cerebellar salt wasting. Blood pressures were slightly elevated as well. After discussion with Radiology, nephrology and neurology, a decision was made to transfer patient to high-level care center for further evaluation and treatment. This would include neuro ICU monitoring with electrolytes, blood pressure and follow up of hemorrhagic CVA. Case discussed with attending neuro forest fire specialist supervisor. He has agreed with transfer. Patient be transferred for further high-level care. Patient currently on IV fluids at 50 cc/hour. Other medications include salt tablet twice daily, metoprolol 25 mg 1 pill twice daily, Norvasc 2.5 mg daily, Lipitor 40 mg daily. Patient on SCD. Patient stable for transfer at this time. Patient to continue care at [facility]. Vital Signs/Physical Exam: Temp Pulse Resp BP Pulse Ox 98.9 F 80 19 150/85 H 96 12/26/20 10:33 12/26/20 10:33 12/26/20 10:33 12/26/20 10:33 12/26/20 10:33 General: Other (Patient with expressive aphasia. Increased somnolence noted.) Neck: Supple Respiratory: Clear to auscultation bilaterally, Normal air movement Cardiovascular: Normal pulses, Regular rate/rhythm Gastrointestinal: Normal bowel sounds, No tenderness, No masses, No rebound, No guarding Neurological: Other (Expressive aphasia noted. Patient able to move all 4s with stimulation.) Laboratory Data at Discharge: WBC 10.60 K/uL (4.3-10.9) D 12/26/20 04:11 Hgb 9.1 g/dL (12.0-15.0) L 12/26/20 04:11 Hct 26.1 % (36.0-45.0) L 12/26/20 04:11 Plt Count 160 K/uL (152-406) 12/26/20 04:11 PT 12.9 SECONDS (9.5-12.5) H 12/23/20 19:54 INR 1.12 12/23/20 19:54 APTT 25.4 SECONDS (24.3-36.9) 12/23/20 19:54 Sodium 125 mmol/L (136-145) L 12/26/20 09:50 Potassium 4.0 mmol/L (3.5-5.1) 12/26/20 09:50 BUN 10 mg/dL (7-18) 12/26/20 09:50 Creatinine 0.39 mg/dL (0.55-1.3) L 12/26/20 09:50 Glucose 102 mg/dL (74-106) 12/26/20 09:50 Phosphorus 3.4 mg/dL (2.5-4.9) 12/24/20 05:06 Magnesium 2.0 mg/dL (1.8-2.4) 12/26/20 04:11 Total Bilirubin 1.0 mg/dL (0.2-1.0) 12/26/20 09:50 AST 29 U/L (15-37) 12/26/20 09:50 ALT 30 U/L (12-78) 12/26/20 09:50 Alkaline Phosphatase 125 U/L (45-117) H 12/26/20 09:50 Troponin I < 0.02 ng/mL (0.0-0.045) 12/24/20 14:37 Triglycerides 97 mg/dL (<150) 12/24/20 05:06 Cholesterol 115 mg/dL (<200) 12/24/20 05:06 HDL Cholesterol 46 mg/dL (40-60) 12/24/20 05:06 Cholesterol/HDL Ratio 2.50 12/24/20 05:06 Home Medications: Aspirin [Aspirin EC] 81 mg PO DAILY 11/11/20 Cholecalciferol (Vitamin D3) [Vitamin D 1000 Iu Tab*] 1 tab PO DAILY 11/11/20 Fish Oil/Dha/Epa [Fish Oil 1,200 mg Fish Oil] 1 tab PO DAILY 11/11/20 Magnesium Oxide [Magnesium] 1 tab PO DAILY 11/11/20 Metformin HCl 1 tab PO BID 11/11/20 Metoprolol Succinate [Toprol Xl*] 25 mg PO BID 12/24/20 Physician Discharge Instructions: Patient be transferred to high-level care center including neuro ICU for close monitoring of blood pressure, electrolytes, and status of hemorrhagic CVA. Diet: NPO Activity: Bedrest Followup: Marleni Lane FNPC [Primary Care Provider] - Time spent managing pt's care (in minutes): 55
--- NOTE | 2020-12-26 12:32 | RAD REPORT ---
EXAM DESCRIPTION: CT - Head Brain Wo Cont - 12/26/2020 6:50 am COMPARISON: CT head December 23, 2020 CLINICAL HISTORY: HS MAIN F/U CVA TECHNIQUE: Axial images were obtained from skull base to vertex without intravenous contrast. Imag es viewed on bone and brain windows. Multiplanar reformats were performed. Automated exposure contr ol was utilized on this examination as a dose lowering technique. FINDINGS: Brain parenchyma, ventricles, dura, meninges, and extra-axial spaces: The left parieto-occ ipital hematoma measures 4.1 x 2.3 x 2.5 cm (previously 4.2 x 2.1 x 2.7 cm). Overall stable adjacent vasogenic edema. Stable small amount of blood within the posterior left lateral ventricle. There is 4 mm rightward midline shift. Vascular structures: No hyperdense arteries or veins. Calvarium, mastoid air cells, paranasal sinuses and orbits: The calvarium is normal. Moderate left ma stoid effusion. There is opacification of the right frontal sinus and mucosal thickening of the sphen oid sinuses. Orbital structures are unremarkable. IMPRESSION: Stable left parieto-occipital intraparenchymal hematoma. Stable small amount of blood in the left lateral ventricle. Stable 4 mm rightward midline shift. Electronically signed by: Frank Phillips MD 12/26/2020 6:43 AM CDT Due to temporary technical issues with the PACS/Fluency reporting system, reports are being signed by the in house radiologists without review as a courtesy to insure prompt reporting. The interpreting radiologist is fully responsible for the content of the report.
[2020-12-26 13:06] VITALS: TEMP 100.1
[2020-12-26 13:08] VITALS: BP 139/61
[2020-12-26] MEDS ORDERED: NA CHLORIDE 0.9% 1,000 ML ONE (14:45)
[2020-12-26] MEDS ORDERED: SODIUM CHLORIDE 1 GM TAB PO SCH (17:00)
== END 2020-12-26 12:45 | disposition short-term general hospital (02) | DRG 65 ==
LOC: ER 19:09 → ERHOLD 21:14 → 2ND 21:58 → ERHOLD 12-26 12:16
PROVIDERS: ADMIT Hospitalist; ATTEND Family Medicine
DX: I63.9 Cerebral infarction, unspecified (principal); G81.94 Hemiplegia, unspecified affecting left nondominant side; E87.1 Hypo-osmolality and hyponatremia; I10 Essential (primary) hypertension; E11.9 Type 2 diabetes mellitus without complications; D51.9 Vitamin B12 deficiency anemia, unspecified; E78.5 Hyperlipidemia, unspecified; H54.7 Unspecified visual loss; H53.47 Heteronymous bilateral field defects; R47.1 Dysarthria and anarthria; R47.02 Dysphasia; R47.01 Aphasia; R51.9 Headache, unspecified; R50.9 Fever, unspecified; R29.704 NIHSS score 4; Z88.5 Allergy status to narcotic agent; Z79.82 Long term (current) use of aspirin; Z79.899 Other long term (current) drug therapy; Z79.84 Long term (current) use of oral hypoglycemic drugs; Z90.49 Acquired absence of other specified parts of digestive tract; Z96.659 Presence of unspecified artificial knee joint; Z20.822 Contact with and (suspected) exposure to COVID-19
CPT/HCPCS: 36415; 70450; 70496; 70498; 70544; 70549; 70553; 71045; 80048; 80053; 80061; 80076; 81003; 82607; 82728; 82746; 82947; 83540; 83735; 84100; 84145; 84439; 84443; 84466; 84484; 85025; 85610; 85730; 87040; 87205; 93005; 93306; 94760; 96374; 97116; 97161; 97530; 99285; A9577; J1650; J2405; J3475; J3480; J7030; J7040; Q9967; U0003